=== PATIENT | male | born 1945 | race Caucasian/White ===

== ENCOUNTER 2021-10-30 13:06 | Outpatient (CLI) | payer SELFPAY ==
--- NOTE | 2021-10-30 13:25 | USCV_ITS ---
Julee Ren Age: 76 Gender: M : 1945 Exam Date: 10/30/2021 13:38 Ordering Phys: Germain Bradley MD Technologist: Bonny Presley [place] [facility] [place]: CAD BP: 116 / 80 HR: 53 Rhythm: Sinus Technical Quality: Suboptimal MEASUREMENTS (Male / Female) Normal Values 2D ECHO LV Diastolic Diameter PLAX 4.0 cm 4.2 - 5.9 / 3.9 - 5.3 cm LV Systolic Diameter PLAX 3.0 cm IVS Diastolic Thickness 1.0 cm 0.6 - 1.0 / 0.6 - 0.9 cm IVS Systolic Thickness 1.7 cm LVPW Diastolic Thickness 1.3 cm 0.6 - 1.0 / 0.6 - 0.9 cm LVPW Systolic Thickness 1.2 cm LVOT Diameter 2.0 cm LV Ejection Fraction 2D Teich 47.4 % LV Ejection Fraction MOD 2C 51.7 % LV Ejection Fraction 2C AL 52.2 % LA Diameter 3.0 cm LA Width 3.4 cm LA Height 5.3 cm RA Width 3.9 cm RA Height 3.6 cm Aorta at Sinotubular Diameter 1.6 cm M-MODE Aortic Annulus Diameter 3.2 cm LA Ao Ratio MM 0.9 MV E Point Septal Separation 1.1 cm DOPPLER AV Peak Velocity 112.0 cm/s LVOT Peak Velocity 116.0 cm/s AV Area Cont Eq vti 2.7 cm squared AV Area Cont Eq pk 3.3 cm squared MV Area PHT 3.9 cm squared Mitral E to A Ratio 1.2 MV E' Velocity 51.5 cm/s Mitral E to MV E' Ratio 13.1 Mitral E to LV E' Lateral Ratio 13.9 Mitral E to LV E' Septal Ratio 12.4 TR Peak Velocity 254.0 cm/s TR Peak Gradient 25.8 mmHg TV Peak E Velocity 52.0 cm/s PV Peak Velocity 119.0 cm/s RV Acceleration Time 0.2 s RV Ejection Time 0.3 s RV AcT/ET 0.6 FINDINGS Left Ventricle Normal left ventricular size. LV systolic function is normal with EF of 50-55%. No regional wall motion abnormalities. Normal diastolic dysfunction Right Ventricle The right ventricle is normal in size and function. Right Atrium The right atrium is normal in size. Left Atrium The left atrium is normal in size. Mitral Valve Mild mitral annular calcification without significant stenosis or prolapse. There is trace mitral regurgitation. Aortic Valve Structurally normal aortic valve without significant sclerosis or stenosis. There is no aortic regurgitation. Tricuspid Valve Structurally normal tricuspid valve without significant stenosis or regurgitation. Insufficient TR jet to calculate RVSP Pulmonic Valve Structurally normal pulmonic valve without significant stenosis. There is trace pulmonic regurgitation. Pericardium Normal pericardium without effusion. Aorta Normal ascending aorta dimension. CONCLUSIONS LV systolic function is normal with EF of 50-55%. Normal diastolic dysfunction Trace mitral regurgitation Trace pulmonic regurgitation No comparison studies are available Abdifatah Leslie MD (Electronically Signed) Final Date: 04 November 2021 08:54 S
--- NOTE | 2021-11-12 13:00 | P.MISC_ITS ---
Miscellaneous Note Note: Julee Ren : 1945 History of Present Illness Chief Complaint: Patient presents for an acute illness. Had lost 10lbs and felt better. anxiety and sleep was better. has gained it back. Last week had pain in right side of chest. stabbing pain. pain went into right arm. nitro and pain pill didn't help. but they were old. took several tums and subsided. happened the next day. can't walk or do much because causes sig shortness of breath and some pain. feels like pressure pain now similar to what he had with his heart before. Current Medications: metoprolol tartrate 50 mg tablet (metoprolol tartrate) Take 1 tablet by mouth once a day atorvastatin 10 mg tablet (atorvastatin) 1 tablet by mouth once a day allopurinol 300 mg tablet (allopurinol) Take 1 tablet by mouth once a day Zofran 4 mg tablet (ondansetron hcl) 1 tablet by mouth every four hours as needed colchicine 0.6 mg capsule (colchicine) 1 tablet by mouth three times a day as needed tamsulosin 0.4 mg capsule (tamsulosin) Take 1 capsule by mouth once a day Allergies: NONE (Critical) Preventive: CHOLESTEROL: COLONOSCOPY: BONE DENSITY: PSA: Flu: DTAP: PNEUMOVAX: PREVNAR 13: ZOSTAVAX: COVID VACCINE: Past, Family, and Social History Past History (reviewed - no changes required): PAST MEDICAL HISTORY: Coronary Artery Disease; PVD; gout; diverticulitis; benign prostatic hypertrophy PAST SURGICAL HISTORY: appendix; femoral artery graft after an accident; 3 stents 2005; CABG x 3 2008. 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 no alcohol Physical Exam: Previous Weight: 224 (06/08/2021 2:51:01 PM) Vital Signs: Patient Profile: 76 Years Old Male CC: Chief Complaint: Patient presents for an acute illness. Height: 70 inches Weight: 220 pounds BMI: 31.56 O2 Sat: 95 % Temp: 97.6 degrees F temporal Pulse rate: 69 / minute Resp: 20 per minute BP Sittin / 82 Constitutional: Alert, no acute distress, well hydrated, well developed, well nourished. Skin: Normal turgor, normal color, no rashes, no lesions, no unusual bruising. Cardiovascular: RRR, no murmurs, no gallops, peripheral pulses intact, no edema. Respiratory: No respiratory distress, no accessory muscle use, clear to auscultation. Abdomen: nondistended, nontender, normal BS, no hepatosplenomegaly, no hernias. Neurol: station & gait normal. Psych: Oriented to all spheres, affect normal. EKG - NSR, no ST changes. No Q waves Problem Assessment Assessment New Problems: Chest pain (ICD-786.50) (AYH59-V55.9) Impressions: - chest pain - ? etiology. EKG normal. check labs and D-dimer. consider stress test. Discussed ER if worsens. Restart ASA and give nitro SL Return to clinic early next week. Plan New Prescriptions/Refills: nitroglycerin 0.4 mg tablet, sublingual (nitroglycerin) 1 tab SL q 5 mins x 3 doses prn chest pain #20 tablets x 11, 10/27/2021, Germain Bradley MD, SIGNED Updated Medication List: nitroglycerin 0.4 mg tablet, sublingual (nitroglycerin) 1 tab SL q 5 mins x 3 doses prn chest pain metoprolol tartrate 50 mg tablet (metoprolol tartrate) Take 1 tablet by mouth once a day atorvastatin 10 mg tablet (atorvastatin) 1 tablet by mouth once a day aspirin 325 mg tablet (aspirin) 1 tablet by mouth once a day allopurinol 300 mg tablet (allopurinol) Take 1 tablet by mouth once a day Zofran 4 mg tablet (ondansetron hcl) 1 tablet by mouth every four hours as needed colchicine 0.6 mg capsule (colchicine) 1 tablet by mouth three times a day as needed tamsulosin 0.4 mg capsule (tamsulosin) Take 1 capsule by mouth once a day New Orders: Ofc Vst, Est Level IV [CPT-50297] CBC w/auto diff WBC [CPT-23748] Basic Mebabolic Panel [CPT-49826] Miscellaneous [0] Electrocardiogram (routine ECG), complete [CPT-40474] Medications: Added new medication of nitroglycerin 0.4 mg tablet, sublingual (nitroglycerin) 1 tab SL q 5 mins x 3 doses prn chest pain - Signed Removed medication of losartan 100 mg tablet (losartan) 1 tablet by mouth once a day ; Route: BY MOUTH; Stop Date: 10/27/2021 - Signed Rx of nitroglycerin 0.4 mg tablet, sublingual (nitroglycerin) 1 tab SL q 5 mins x 3 doses prn chest pain; #20 tablets x 11; Signed; Entered by: Germain Bradley MD; Authorized by: Germain Bradley MD; Method used: Electronically to [place] [id number], , Prescriptions: nitroglycerin 0.4 mg tablet, sublingual (nitroglycerin) 1 tab SL q 5 mins x 3 doses prn chest pain #20 tablets x 11 Entered and Authorized by: Germain Bradley MD Method used: Electronically to [place] [id number], RxID: [id number] Julee Ren : 1945 History of Present Illness His chest pain was 1 week ago. Troponin came back pos from 2 days ago. His EKG was normal 2 days ago in clinic. Was an atypical presentation. He is still very weak but no chest pain. No worse. Current Medications: isosorbide mononitrate 30 mg tablet extended release 24 hr (isosorbide mononitrate) 1 tablet once a day nitroglycerin 0.4 mg tablet, sublingual (nitroglycerin) 1 tab SL q 5 mins x 3 doses prn chest pain metoprolol tartrate 50 mg tablet (metoprolol tartrate) Take 1 tablet by mouth once a day atorvastatin 10 mg tablet (atorvastatin) 1 tablet by mouth once a day aspirin 325 mg tablet (aspirin) 1 tablet by mouth once a day allopurinol 300 mg tablet (allopurinol) Take 1 tablet by mouth once a day Zofran 4 mg tablet (ondansetron hcl) 1 tablet by mouth every four hours as needed colchicine 0.6 mg capsule (colchicine) 1 tablet by mouth three times a day as needed tamsulosin 0.4 mg capsule (tamsulosin) Take 1 capsule by mouth once a day Allergies: NONE (Critical) Preventive: CHOLESTEROL: COLONOSCOPY: BONE DENSITY: PSA: Flu: DTAP: PNEUMOVAX: PREVNAR 13: ZOSTAVAX: COVID VACCINE: Past, Family, and Social History Past History (reviewed - no changes required): PAST MEDICAL HISTORY: Coronary Artery Disease; PVD; gout; diverticulitis; benign prostatic hypertrophy PAST SURGICAL HISTORY: appendix; femoral artery graft after an accident; 3 stents 2005; CABG x 3 2008. 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 no alcohol Physical Exam: Previous Weight: 220 (10/27/2021 11:53:53 AM) Vital Signs: Patient Profile: 76 Years Old Male Height: 70 inches Weight: 221 pounds BMI: 31.71 O2 Sat: 95 % Temp: 97.4 degrees F temporal Pulse rate: 72 / minute Resp: 20 per minute BP Sittin / 75 Constitutional: Alert, no acute distress, well hydrated, well developed, well nourished. Skin: Normal turgor, normal color, no rashes, no lesions, no unusual bruising. Cardiovascular: RRR, no murmurs, no gallops, peripheral pulses intact, no edema. Respiratory: No respiratory distress, no accessory muscle use, clear to auscultation. Abdomen: nondistended, nontender, normal BS, no hepatosplenomegaly, no hernias. Neurol: station & gait normal. Psych: Oriented to all spheres, affect normal. Problem Assessment Assessment New Problems: Myocardial infarction (ND) (ICD-410.90) (RUP92-H67.3) Impressions: - status post ND/ Coronary Artery Disease - add lisinopril/ Plavix/Isosorbide. Precautions to go to ER. Urgent echo and then decide on stress test or angiogram. refer to cardiology - likely Diabetes Mellitus type 2 - check labs next week. discussed diet - Return to clinic for recheck in 1 week Plan New Prescriptions/Refills: Plavix 75 mg tablet (clopidogrel) Take 1 tablet by mouth once a day #30 tablet x 10/29/2021, Germain Bradley MD, SIGNED lisinopril 10 mg tablet (lisinopril) Take 1 tablet by mouth once a day #30 tablet x , 10/29/2021, Germain Bradley MD, SIGNED Updated Medication List: Plavix 75 mg tablet (clopidogrel) Take 1 tablet by mouth once a day lisinopril 10 mg tablet (lisinopril) Take 1 tablet by mouth once a day isosorbide mononitrate 30 mg tablet extended release 24 hr (isosorbide mononitrate) 1 tablet once a day nitroglycerin 0.4 mg tablet, sublingual (nitroglycerin) 1 tab SL q 5 mins x 3 doses prn chest pain metoprolol tartrate 50 mg tablet (metoprolol tartrate) Take 1 tablet by mouth once a day atorvastatin 10 mg tablet (atorvastatin) 1 tablet by mouth once a day aspirin 325 mg tablet (aspirin) 1 tablet by mouth once a day allopurinol 300 mg tablet (allopurinol) Take 1 tablet by mouth once a day Zofran 4 mg tablet (ondansetron hcl) 1 tablet by mouth every four hours as needed colchicine 0.6 mg capsule (colchicine) 1 tablet by mouth three times a day as needed tamsulosin 0.4 mg capsule (tamsulosin) Take 1 capsule by mouth once a day New Orders: Ofc Vst, Est Level IV [CPT-25268] ECHO, transthoracic, complete [CPT-94873] Medications: Added new medication of lisinopril 10 mg tablet (lisinopril) Take 1 tablet by mouth once a day ; Route: BY MOUTH - Signed Added new medication of Plavix 75 mg tablet (clopidogrel) Take 1 tablet by mouth once a day ; Route: BY MOUTH - Signed Rx of lisinopril 10 mg tablet (lisinopril) Take 1 tablet by mouth once a day ; #30 tablet x 11; Signed; Entered by: Germain Bradley MD; Authorized by: Germain Bradley MD; Method used: [place] [address], , Rx of Plavix 75 mg tablet (clopidogrel) Take 1 tablet by mouth once a day ; #30 tablet x 11; Signed; Entered by: Germain Bradley MD; Authorized by: Germain Bradley MD; Method used: [place] [address], Fax: , ; Note to Pharmacy: do generic:USE Rx DISCOUNT CARD: $191.27, BIN:[id number], PCN:CHIPPO, Group:[id number], ID:[id number] Prescriptions: Plavix 75 mg tablet (clopidogrel) Take 1 tablet by mouth once a day #30 tablet x 11 Entered and Authorized by: Germain Bradley MD Method used: [place] [address], Note to Pharmacy: do generic:USE Rx DISCOUNT CARD: $191.27, BIN:[id number], PCN:CHIPPO, Group:[id number], ID:[id number] RxID: [id number] lisinopril 10 mg tablet (lisinopril) Take 1 tablet by mouth once a day #30 ta blet x 11 Entered and Authorized by: Germain Bradley MD Method used: [place] [address], RxID: [id number]
--- NOTE | 2021-11-12 13:04 | PM.MISC ---
Miscellaneous Note Note: _ _
== END 2021-10-30 13:07 | disposition home or self-care (01) ==
PROVIDERS: PCP Family Medicine; Visit Provider Family Medicine
DX: I25.10 Atherosclerotic heart disease of native coronary artery without angina pectoris (principal); I34.0 Nonrheumatic mitral (valve) insufficiency
CPT/HCPCS: 93306

== ENCOUNTER 2021-12-21 04:53 | Inpatient (IN) | payer MEDICARE, SELFPAY ==
[2021-12-21] VITALS (44 sets, daily range): BP systolic 84–140; BP diastolic 47–81; PULSE 63–119; RESP 10–25; TEMP 36.3–37.1; O2SAT 91–97; BMI 28.5
--- NOTE | 2021-12-21 05:02 | ECG_ITS ---
[facility] Test Date: 2021-12-21 Pat Name: Julee Ren Department: Room: 104 Gender: Male [employer]: : 1945 Requested By: Henrry Granados Order Number: [id number] Ilsa MD: Perlita Snowden M.D. Measurements Intervals [place] Rate: 72 P: 64 MS: 146 QRS: 61 QRSD: 93 T: 75 QT: 405 QTc: 445 Interpretive Statements SINUS RHYTHM Compared to ECG 12/21/2021 07:03:49 No significant changes Electronically Signed On 12-21-2021 17:36:46 CDT by Perlita Snowden M.D. [email or web address]
--- NOTE | 2021-12-21 05:02 | XRR_ITS ---
PROCEDURE INFORMATION: Exam: XR Chest Exam date and time: 12/21/2021 5:15 AM Age: 76 years old Clinical indication: Pain; Chest pressure; Prior surgery; Surgery date: 6+ months; Surgery type: Cabg; Additional info: Cp TECHNIQUE: Imaging protocol: XR of the chest. Views: 1 view. COMPARISON: No relevant prior studies available. FINDINGS: Lungs: Unremarkable. No consolidation. Pleural spaces: Unremarkable. No pleural effusion. No pneumothorax. Heart/Mediastinum: Unremarkable. No cardiomegaly. Bones/joints: Median sternotomy changes seen. XR/XR chest 1V portable [id number] IMPRESSION: No evidence of active cardiopulmonary disease.
[2021-12-21] MEDS: sodium chloride 0.9% 1,000 ML 999 ML IV (05:11)
[2021-12-21 05:12] LABS: Basophils # 0.1 10^3/uL (0.0-0.1); Basophils % 0.5 %; Eosinophils # 0.3 10^3/uL (0.0-0.8); Eosinophils % 2.1 %; Hematocrit 40.7 % (42.0-52.0); Hemoglobin 13.6 g/dL (11.7-16.6); Lymphocytes # 5.3 10^3/uL (0.8-4.8); Lymphocytes % 38.6 %; Mean Corpuscular HGB Conc 33.4 g/dL (30.0-36.0); Mean Corpuscular Hemoglobin 31.1 pg (28.0-34.0); Mean Corpuscular Volume 93.1 fl (80-94); Mean Platelet Volume 11.5 fL (7.4-10.4); Monocytes % 7.2 %; Neutrophils # 7.01 10^3/uL (1.8-7.7); Neutrophils % 50.9 %; Nucleated Red Blood Cells % 0 %; Platelet Count 260 10^3/cmm (130-400); Red Blood Count 4.37 10^6/uL (4.1-5.3); Red Cell Distribution Width 13.5 % (12.1-15.1); White Blood Count 13.8 10^3/uL (4.0-10.0)
--- NOTE | 2021-12-21 05:19 | ED_ITS ---
Documented by User: Henrry Darling DO 01/01/22 18:21 HPI - Chest Pain General: Chief Complaint: Chest Pain Stated Complaint: chest pain Time Seen by Provider: 12/21/21 04:54 History of Present Illness: 76-year-old gentleman who awoke around 4 AM with chest discomfort. He has a history of coronary artery disease. He also states he has been having some black stools for the past week or so. He was short of breath. EMS was called. He was found to be in sinus tachycardia rhythm with a good blood pressure. Pain seems to have resolved on arrival. But shortly after arrival, the patient began to feel nauseated, and faint. He likely had a syncopal episode lasting only a couple of seconds witnessed in the room. He became diaphoretic, and mildly hypotensive with a systolic blood pressure of 90. IV fluids were started, the patient again was found to be in sinus tachycardia. Currently he is awake and talking, chest pain is resolved. MD complaint: chest pain Onset (ago): minute(s) Timing of current episode: constant and now resolved Prior episodes: Yes Onset: awoke with symptoms Pain location: substernal Pain radiation: none Quality: tightness and heaviness Relieving factors: nothing Exacerbating factors: nothing Associated symptoms: Reports dyspnea, nausea and palpitations; Deny abdominal pain, fever(s) or vomiting Review of Systems Const: Reports: chills; Denies: fever(s) ENMT: Denies: throat pain Card: Reports: chest pain and palpitations Resp: Reports: dyspnea; Denies: productive cough or non-productive cough GI: Reports: nausea and melena; Denies: abdominal pain, vomiting or hematochezia Musc: Denies: neck pain or back pain Psych: Reports: anxiety PFSH ED PFSH: Medical History Benign prostatic hyperplasia CAD (coronary artery disease) Chest pain Gout History of diverticulitis With history of colonic rupture requiring colostomy Hypertension PVD (peripheral vascular disease) SOB (shortness of breath) Surgical History History of appendectomy History of colostomy reversal History of coronary artery stent placement Hx of CABG Family History Other CAD (coronary artery disease) Diabetes Social History Smoking and tobacco status: former smoker Alcohol intake: never Physical Exam Const: GENERAL APPEARANCE: cooperative, ill appearing and diaphoretic HENMT: COMMON NORMALS: normocephalic, atraumatic and Normal external nose present HEAD & SCALP: normocephalic and atraumatic FACE & SINUS: normal facial exam and face symmetric NOSE: Normal external nose present Eye: COMMON NORMALS: Equal, round and reactive pupils present and EOMs intact bilaterally PUPIL: Yes Equal, round and reactive pupils present Neck/C-Spine: GENERAL: Yes trachea midline Chest: CHEST: Yes Symmetrical chest wall rise Resp: EFFORT & INSPECTION: Yes tachypneic and Yes uses accessory muscles AUSCULTATION: rhonchi and diminished lung sounds Cardio: COMMON NORMALS: regular rhythm RATE: tachycardic RHYTHM: regular rhythm Extremity: COMMON NORMALS: no pedal edema Neuro: QUETA COMA SCALE: document GCS findings [place] coma scale eye opening: Spontaneous [place] coma scale verbal response: Orientated [place] coma scale motor response: Obey commands [place] coma scale total score: 15 Skin: GENERAL SKIN EXAM: pallor Course Vital Signs: Vital signs: Vital Signs Temperature 97.4 F L 12/23/21 13:46 Pulse Rate 83 12/23/21 16:00 Respiratory Rate 18 12/23/21 16:00 Blood Pressure 126/71 12/23/21 16:00 Pulse Oximetry 91 12/23/21 16:00 MDM - Chest Pain Medical Decision Making Patient presented diaphoretic, had at least a near syncopal episode, and had been having chest discomfort. Chest discomfort is resolved. He is minimally short of breath currently. His color is no longer ashen. Blood pressure currently after 1 L, is 120/73, heart rate down to 80, sinus. Saturations are 95% on room air. White blood cell count is 13.8. BUN is 40. His hemoglobin is 13.6. Chest x-ray is negative. EKG initially showed sinus tachycardia with no acute ST changes. First troponin is 10. BNP is slightly elevated. 2-hour troponin and EKG are pending along with D-dimer. He will be checked out to Dr. Ortiz at shift change Lab Data : 12/23/21 03:35 12/23/21 03:35 Radiology Impressions Chest X-Ray 12/21/21 05:02 IMPRESSION: No evidence of active cardiopulmonary disease. Gallbladder Ultrasound 12/21/21 11:59 IMPRESSION: 1. Negative gallbladder. 2. Technically very limited evaluation of the RIGHT upper quadrant. 3. Moderate hepatomegaly with severe hepatic steatosis. Laboratory Results WBC 13.8 10^3/uL (4.0-10.0) H 12/21/21 04:45 RBC 4.37 10^6/uL (4.1-5.3) 12/21/21 04:45 Hgb 13.6 g/dL (11.7-16.6) 12/21/21 04:45 Hct 40.7 % (42.0-52.0) L 12/21/21 04:45 MCV 93.1 fl (80-94) 12/21/21 04:45 MCH 31.1 pg (28.0-34.0) 12/21/21 04:45 MCHC 33.4 g/dL (30.0-36.0) 12/21/21 04:45 RDW 13.5 % (12.1-15.1) 12/21/21 04:45 Plt Count 260 10^3/cmm (130-400) 12/21/21 04:45 MPV 11.5 fL (7.4-10.4) H 12/21/21 04:45 Neut % (Auto) 50.9 % 12/21/21 04:45 Lymph % (Auto) 38.6 % 12/21/21 04:45 [place] % (Auto) 7.2 % 12/21/21 04:45 Eos % (Auto) 2.1 % 12/21/21 04:45 Baso % (Auto) 0.5 % 12/21/21 04:45 Neut # (Auto) 7.01 10^3/uL (1.8-7.7) 12/21/21 04:45 Lymph # (Auto) 5.3 10^3/uL (0.8-4.8) H 12/21/21 04:45 [place] # (Auto) 1.0 10^3/uL (0.2-0.9) H 12/21/21 04:45 Eos # (Auto) 0.3 10^3/uL (0.0-0.8) 12/21/21 04:45 Baso # (Auto) 0.1 10^3/uL (0.0-0.1) 12/21/21 04:45 Nucleated RBC % (auto) 0 % 12/21/21 04:45 Nucleated RBCs # 0.0 /100WBC 12/21/21 04:45 PT 14.70 SECONDS (12.1-14.9) 12/21/21 04:45 INR 1.12 (0.8-1.2) 12/21/21 04:45 APTT 27.5 SECONDS (23.9-36.7) 12/21/21 04:45 D-Dimer 0.65 ug/mIFEU (0-0.59) H 12/21/21 04:45 Sodium 137 mmol/L (136-145) 12/21/21 04:45 Potassium 4.4 mmol/L (3.5-5.1) 12/21/21 04:45 Chloride 101 mmol/L (98-107) 12/21/21 04:45 Carbon Dioxide 22 mmol/L (22-29) 12/21/21 04:45 Anion Gap 18.4 (5-19) 12/21/21 04:45 BUN 40 mg/dL (8-23) H 12/21/21 04:45 Creatinine 1.2 mg/dL (0.7-1.2) 12/21/21 04:45 GFR Calculation Not Reportable 12/21/21 04:45 Glucose 186 mg/dL (65-115) H 12/21/21 04:45 Estimat Average Glucose 186 12/21/21 04:45 Hemoglobin A1c 8.1 % (4.0-6.0) H 12/21/21 04:45 Calculated Osmolality 299 mOsm/kg (285-295) H 12/21/21 04:45 Calcium 8.5 mg/dL (8.5-10.5) 12/21/21 04:45 Total Bilirubin 0.5 mg/dL (0.15-1.2) 12/21/21 04:45 AST 18 U/L (0-40) 12/21/21 04:45 ALT 21 U/L (0-41) 12/21/21 04:45 Alkaline Phosphatase 84 IU/L (40-130) 12/21/21 04:45 Troponin T Baseline 10 ng/L (0-15) 12/21/21 04:45 Troponin T 120 Minute 8.86 ng/L (0-15) 12/21/21 07:43 Delta Troponin T -1.14 ABS# (0-10) L 12/21/21 07:43 NT-Pro-B Natriuret Pep 322 pg/mL (0-125) H 12/21/21 04:45 Total Protein 6.8 g/dL (6.6-8.7) 12/21/21 04:45 Albumin 3.9 g/dL (3.5-5.2) 12/21/21 04:45 Globulin 2.9 g/dL (1.3-4.6) 12/21/21 04:45 TSH 1.53 uIU/mL (0.27-4.20) 12/21/21 07:43 Discharge Plan Discharge Patient Disposition: Admitted As Inpatient Admit Provider: Shiv Garcia Condition: Stable Discharge Diet: Cardiac Sign Out Sign Out Data: Patient Sign Out occurred on 12/21/21 at 07:11. Patient's care was discussed, and care was transferred from to Juanpablo Ortiz DO. Coding Level of Care Code ED Weight Loss Physician for Chg Fwd Exam Comprehensive Documented by User: Juanpablo Ortiz DO 12/21/21 09:03 HPI - Chest Pain General: Chief Complaint: Chest Pain Stated Complaint: chest pain Time Seen by Provider: 12/21/21 04:54 PFS ED PFSH: Medical History Benign prostatic hyperplasia CAD (coronary artery disease) Chest pain Gout History of diverticulitis With history of colonic rupture requiring colostomy Hypertension PVD (peripheral vascular disease) SOB (shortness of breath) Surgical History History of appendectomy History of colostomy reversal History of coronary artery stent placement Hx of CABG Family History Other CAD (coronary artery disease) Diabetes Social History Smoking and tobacco status: former smoker Alcohol intake: never Physical Exam Neuro: QUETA COMA SCALE: document GCS findings [place] coma scale total score: 15 Course Vital Signs: Vital signs: Vital Signs Temperature 97.4 F L 12/23/21 13:46 Pulse Rate 83 12/23/21 16:00 Respiratory Rate 18 12/23/21 16:00 Blood Pressure 126/71 12/23/21 16:00 Pulse Oximetry 91 12/23/21 16:00 MDM - Chest Pain Medical Decision Making Patient presented diaphoretic, had at least a near syncopal episode, and had been having chest discomfort. Chest discomfort is resolved. He is minimally short of breath currently. His color is no longer ashen. Blood pressure currently after 1 L, is 120/73, heart rate down to 80, sinus. Saturations are 95% on room air. White blood cell count is 13.8. BUN is 40. His hemoglobin is 13.6. Chest x-ray is negative. EKG initially showed sinus tachycardia with no acute ST changes. First troponin is 10. BNP is slightly elevated. 2-hour t roponin and EKG are pending along with D-dimer. He will be checked out to Dr. Ortiz at shift change Patient is feeling better his symptoms have resolved. Blood pressure is improved somewhat but is still low. He is having significant what sounds like essentially anginal equivalent with significant shortness of breath with almost any activity even walking within the space of her room. He had previously seen Dr. Ila Thorpe and encouraged him to have angiogram. Will admit discussed with hospitalist consult cardiology. Medical Records I reviewed the patient's medical records. Lab Data I reviewed the patient's lab results. : 12/23/21 03:35 12/23/21 03:35 Radiology Impressions Chest X-Ray 12/21/21 05:02 IMPRESSION: No evidence of active cardiopulmonary disease. Gallbladder Ultrasound 12/21/21 11:59 IMPRESSION: 1. Negative gallbladder. 2. Technically very limited evaluation of the RIGHT upper quadrant. 3. Moderate hepatomegaly with severe hepatic steatosis. Laboratory Results WBC 13.8 10^3/uL (4.0-10.0) H 12/21/21 04:45 RBC 4.37 10^6/uL (4.1-5.3) 12/21/21 04:45 Hgb 13.6 g/dL (11.7-16.6) 12/21/21 04:45 Hct 40.7 % (42.0-52.0) L 12/21/21 04:45 MCV 93.1 fl (80-94) 12/21/21 04:45 MCH 31.1 pg (28.0-34.0) 12/21/21 04:45 MCHC 33.4 g/dL (30.0-36.0) 12/21/21 04:45 RDW 13.5 % (12.1-15.1) 12/21/21 04:45 Plt Count 260 10^3/cmm (130-400) 12/21/21 04:45 MPV 11.5 fL (7.4-10.4) H 12/21/21 04:45 Neut % (Auto) 50.9 % 12/21/21 04:45 Lymph % (Auto) 38.6 % 12/21/21 04:45 [place] % (Auto) 7.2 % 12/21/21 04:45 Eos % (Auto) 2.1 % 12/21/21 04:45 Baso % (Auto) 0.5 % 12/21/21 04:45 Neut # (Auto) 7.01 10^3/uL (1.8-7.7) 12/21/21 04:45 Lymph # (Auto) 5.3 10^3/uL (0.8-4.8) H 12/21/21 04:45 [place] # (Auto) 1.0 10^3/uL (0.2-0.9) H 12/21/21 04:45 Eos # (Auto) 0.3 10^3/uL (0.0-0.8) 12/21/21 04:45 Baso # (Auto) 0.1 10^3/uL (0.0-0.1) 12/21/21 04:45 Nucleated RBC % (auto) 0 % 12/21/21 04:45 Nucleated RBCs # 0.0 /100WBC 12/21/21 04:45 PT 14.70 SECONDS (12.1-14.9) 12/21/21 04:45 INR 1.12 (0.8-1.2) 12/21/21 04:45 APTT 27.5 SECONDS (23.9-36.7) 12/21/21 04:45 D-Dimer 0.65 ug/mIFEU (0-0.59) H 12/21/21 04:45 Sodium 137 mmol/L (136-145) 12/21/21 04:45 Potassium 4.4 mmol/L (3.5-5.1) 12/21/21 04:45 Chloride 101 mmol/L (98-107) 12/21/21 04:45 Carbon Dioxide 22 mmol/L (22-29) 12/21/21 04:45 Anion Gap 18.4 (5-19) 12/21/21 04:45 BUN 40 mg/dL (8-23) H 12/21/21 04:45 Creatinine 1.2 mg/dL (0.7-1.2) 12/21/21 04:45 GFR Calculation Not Reportable 12/21/21 04:45 Glucose 186 mg/dL (65-115) H 12/21/21 04:45 Estimat Average Glucose 186 12/21/21 04:45 Hemoglobin A1c 8.1 % (4.0-6.0) H 12/21/21 04:45 Calculated Osmolality 299 mOsm/kg (285-295) H 12/21/21 04:45 Calcium 8.5 mg/dL (8.5-10.5) 12/21/21 04:45 Total Bilirubin 0.5 mg/dL (0.15-1.2) 12/21/21 04:45 AST 18 U/L (0-40) 12/21/21 04:45 ALT 21 U/L (0-41) 12/21/21 04:45 Alkaline Phosphatase 84 IU/L (40-130) 12/21/21 04:45 Troponin T Baseline 10 ng/L (0-15) 12/21/21 04:45 Troponin T 120 Minute 8.86 ng/L (0-15) 12/21/21 07:43 Delta Troponin T -1.14 ABS# (0-10) L 12/21/21 07:43 NT-Pro-B Natriuret Pep 322 pg/mL (0-125) H 12/21/21 04:45 Total Protein 6.8 g/dL (6.6-8.7) 12/21/21 04:45 Albumin 3.9 g/dL (3.5-5.2) 12/21/21 04:45 Globulin 2.9 g/dL (1.3-4.6) 12/21/21 04:45 TSH 1.53 uIU/mL (0.27-4.20) 12/21/21 07:43 Discharge Plan Discharge Patient Disposition: Admitted As Inpatient Admit Provider: Shiv Garcia Condition: Stable Discharge Diet: Cardiac Sign Out Sign Out Data: Patient Sign Out occurred on 12/21/21 at 07:11. Patient's care was discussed, and care was transferred from to Juanpablo Ortiz DO. Coding Level of Care Code ED Weight Loss Physician for Shivg Fwd Exam Comprehensive
[2021-12-21] MEDS: LORazepam 2 mg/mL INJ 1 mL 0.5 MG IVP (05:23)
[2021-12-21 05:25] LABS: INR 1.12 (0.8-1.2); Partial Thromboplastin Time 27.5 SECONDS (23.9-36.7)
[2021-12-21 05:31] LABS: Troponin(5th) Baseline 10 ng/L (0-15)
[2021-12-21 05:39] LABS: Alanine Aminotransferase 21 U/L (0-41); Albumin Level 3.9 g/dL (3.5-5.2); Alkaline Phosphatase 84 IU/L (40-130); Anion Gap 18.4 (5-19); Aspartate Amino Transferase 18 U/L (0-40); Blood Urea Nitrogen 40 mg/dL (8-23); Calcium 8.5 mg/dL (8.5-10.5); Carbon Dioxide 22 mmol/L (22-29); Chloride 101 mmol/L (98-107); Creatinine Clr Calc Pharmacy 64.6721; Globulin 2.9 g/dL (1.3-4.6); Glucose 186 mg/dL (65-115); NT Pro B Type Natriuretic Pept 322 pg/mL (0-125); Osmolality Calculated 299 mOsm/kg (285-295); Potassium 4.4 mmol/L (3.5-5.1); Sodium 137 mmol/L (136-145); Total Bilirubin 0.5 mg/dL (0.15-1.2); Total Protein 6.8 g/dL (6.6-8.7)
[2021-12-21] MEDS: sodium chloride 0.9% 500 ML 999 ML IV (06:27)
--- NOTE | 2021-12-21 07:02 | ECG_ITS ---
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 Measurements Intervals [place] Rate: 75 P: 68 NM: 148 QRS: 70 QRSD: 98 T: 70 QT: 407 QTc: 455 Interpretive Statements SINUS RHYTHM Compared to ECG 12/21/2021 05:03:48 Sinus tachycardia no longer present ST (T wave) deviation no longer present Electronically Signed On 12-21-2021 17:41:42 CDT by Perlita Snowden M.D. [id number]
[2021-12-21 07:07] LABS: D Dimer 0.65 ug/mIFEU (0-0.59)
[2021-12-21 08:09] LABS: Troponin 5 2HR 8.86 ng/L (0-15)
[2021-12-21 08:41] LABS: Troponin 5 2HR Delta -1.14 ABS# (0-10)
--- NOTE | 2021-12-21 08:54 | P.HP_ITS ---
Providers/Chief Complaint Admitting Physician: Shiv Garcia MD, hospitalist Primary Care Provider: Germain Bradley MD Chief Complaint: chest pain History of Present Illness Julee Ren is a 76 year old male who presents to the emergency department with complaints of chest discomfort. He reports around 4 AM this morning he awoke with chest discomfort to the right of his sternum, associated with nausea and diaphoresis. Some radiation to the right shoulder. He reported this lasted minutes, and eventually went away without any intervention. He has had 3-4 of these episodes in the 6 weeks with similar symptoms. He visited with cardiology regarding one of the episodes and it was recommended he got an angiogram. Some of the episodes have been with exertion. On arrival to the emergency department here, he was noted to be hypotensive. It appears to receive some Ativan, and fluids eventually and is ER course. He did receive a nitroglycerin in route by EMS. He denies any fevers lately. He has had some black or stools in the last 2 days, but they are not black or tarry or have any odor. He reports he has had a little stomach upset with initiation of aspirin and Plavix by his primary care provider recently. He denies any nosebleeds, bright red blood in stool. He received aspirin by EMS. Review of Systems General: Reports: 10 or more systems reviewed and unremarkable except in HPI and below Const: Denies: fever(s) or chills Eyes: Denies: change in vision ENMT: Denies: throat pain Card: Reports: chest pain and lightheadedness Resp: Denies: dyspnea GI: Reports: nausea; Denies: hematochezia : Denies: flank pain Musc: Denies: neck pain Skin/Breast: Denies: rash Neuro: Denies: headache(s) Psych: Denies: anxiety or depression Endo: Denies: polyuria Homar/Lymph: Denies: easy bruising All/Imm: Denies: urticaria Medications/Allergies Home Medications Medication Instructions Recorded Confirmed Last Taken Type allopurinol 300 mg tablet 300 mg PO QAM tab 11/13/21 12/21/21 12/19/21 History aspirin 325 mg tablet 325 mg PO QAM 11/13/21 12/21/21 12/19/21 History clopidogrel 75 mg tablet 75 mg PO QAM 11/13/21 12/21/21 12/19/21 History colchicine 0.6 mg tablet 0.6 mg PO DAILY PRN tab 11/13/21 12/21/21 Unknown History guaifenesin 600 mg tablet, 600 mg PO DAILY PRN tab 11/13/21 12/21/21 Unknown History extended release 12 hr (Mucinex) lisinopril 10 mg tablet 10 mg PO QAM 11/13/21 12/21/21 12/19/21 History metoprolol tartrate 50 mg tablet 50 mg PO QAM 11/13/21 12/21/21 12/19/21 History ondansetron HCl 4 mg tablet 4 mg PO Q4H PRN tab 11/13/21 12/21/21 Unknown History tamsulosin 0.4 mg capsule 0.4 mg PO QAM 11/13/21 12/21/21 Unknown History docusate sodium 100 mg capsule 100 mg PO QAM 12/21/21 12/21/21 Unknown History (Stool Softener) isosorbide mononitrate 30 mg 30 mg PO QAM 12/21/21 12/21/21 12/19/21 History tablet,extended release 24 hr nitroglycerin 0.4 mg sublingual 0.4 mg SUBLINGUAL Q5M PRN 12/21/21 12/21/21 Unknown History tablet (Nitrostat) Allergies Allergy/AdvReac Type Severity Reaction Status Date / Time No Known Drug Allergies Allergy Unknown unknown Verified 12/21/21 08:33 PFSH Acute PFSH: Medical History (Updated 12/21/21 @ 09:11 by Shiv Garcia MD) Benign prostatic hyperplasia CAD (coronary artery disease) Chest pain Gout History of diverticulitis With history of colonic rupture requiring colostomy Hypertension PVD (peripheral vascular disease) SOB (shortness of breath) Surgical History (Updated 12/21/21 @ 09:01 by Shiv Garcia MD) History of appendectomy History of colostomy reversal History of coronary artery stent placement Hx of CABG Family History (Updated 12/21/21 @ 09:00 by Shiv Garcia MD) Other CAD (coronary artery disease) Diabetes Social History (Updated 12/21/21 @ 09:00 by Shiv Garcia MD) Smoking and tobacco status: former smoker Alcohol intake: never Other PFSH information: Supplemental PFSH Information: History of right femoral artery repair repair after trauma Vitals/I&O/Wt Last Vital Signs Temp 97.7 F 12/21/21 05:10 Pulse 73 12/21/21 07:55 Resp 18 12/21/21 07:55 BP 101/63 12/21/21 07:55 Pulse Ox 94 12/21/21 07:55 12/20/21 12/21/21 12/21/21 22:59 06:59 14:59 Intake Total 1000 / 1000 Balance 1000 / 1000 Weight last 48 hrs Weight 95.254 kg Physical Exam Narrative: General exam is a white male, denies any discomfort currently, in no distress HEENT: Atraumatic normocephalic. Pupils equally round. Oropharynx clear. Neck is supple no lymphadenopathy or thyromegaly Cardiovascular regular rate and rhythm without murmur, no S3 or S4 Lungs a few faint expiratory wheezes Abdomen is soft nontender positive bowel sounds. No obvious organomegaly exam was deferred Extremities no cyanosis clubbing or edema, cap refill brisk Skin no rash Neuro no obvious focal deficits. Data : 12/21/21 04:45 12/21/21 04:45 Other Labs: Initial EKG demonstrated sinus tachycardia, normal axis, ST depression V2 through 6 Chest x-ray no infiltrate, postoperative changes noted Echocardiogram October 2021 demonstrates normal EF, trace mitral regurgitation Dimer is 0.65 LFTs normal Troponin 10 at baseline, repeat 8.86 A&P Assessment and plan (1) Chest pain: This is consistent with unstable angina. He has had multiple episodes. He has visited with cardiology recently, and an angiogram was recommended. At this point in time placed on full dose Lovenox, aspirin, continue Plavix High-dose statin Check lipid panel in the morning Note that he has had a recent echocardiogram Check TSH Serial troponins Secondary to hypotension on arrival, which could possibly have been due to nitroglycerin, hold off on any antihypertensives including beta-donald and nitrates until further evaluation. Status: Acute (2) CAD (coronary artery disease): See notations above Status: Acute (3) Hypertension: Hypotensive on arrival to the emergency department. May have been due to nitroglycerin. Hold off on antihypertensives currently. Status: Acute Plan History of black stool. Not black and tarry. Hemoglobin normal. Placed on Protonix twice daily. Fecal Hemoccult. Hyperglycemia. Check hemoglobin A1c Full code Lovenox will suffice for DVT prophylaxis Attestations Medical Necessity Statement*: Will need greater than 2 midnight stay for evaluation and treatment of unstable angina Coding Level of Care Code Acute Regional Truck Driver for Chg Fwd Diagnoses Chest pain R07.9 CAD (coronary artery disease) I25.10 Hypertension I10
--- NOTE | 2021-12-21 09:27 | PC.NURSE ---
temp: 98.5 oral hr: 79 o2: 96 room air rr: 19 bp: 127/64 semi fowlers automatic cuff
[2021-12-21 09:56] LABS: Thyroid Stimulating Hormone 1.53 uIU/mL (0.27-4.20)
--- NOTE | 2021-12-21 10:04 | PM.CONSULT ---
Providers/Reason For Consult Consulting Physician/Specialty*: Abdifatah Leslie MD/ Cardiology Reason for Consult*: Worsening angina Requesting Physician: Dr Ortiz Attending Physician: Shiv Garcia MD Primary Care Provider: Germain Bradley MD History of Present Illness History of Present Illness Julee Ren is a 76 year old male with past medical history of coronary artery disease status post CABG about 10 years ago he had CRUZ to LAD, SVG to PDA and jump graft to OM1 and OM 2. He was recently seen by Dr. Thorpe in cardiology office for worsening chest pain symptoms. Plan was to perform outpatient coronary angiography. According to patient and his , he has been having worsening chest pain with any degree of exertion that started about 1 month back. Also gets short of breath. His recent echo showed normal LV systolic function. This morning he had excruciating substernal chest discomfort. He also had an episode of vomiting. His troponins are negative. EKG does not show ischemic changes. Review of Systems General: Reports: 10 or more systems reviewed and unremarkable except in HPI and below Const: Denies: fever(s) or chills Eyes: Denies: change in vision ENMT: Denies: throat pain Card: Reports: chest pain and lightheadedness Resp: Denies: dyspnea GI: Reports: nausea; Denies: hematochezia : Denies: flank pain Musc: Denies: neck pain Skin/Breast: Denies: rash Neuro: Denies: headache(s) Psych: Denies: anxiety or depression Endo: Denies: polyuria Homar/Lymph: Denies: easy bruising All/Imm: Denies: urticaria Medications/Allergies Home Medications Medication Instructions Recorded Confirmed Last Taken Type allopurinol 300 mg tablet 300 mg PO QAM tab 11/13/21 12/21/21 12/19/21 History aspirin 325 mg tablet 325 mg PO QAM 11/13/21 12/21/21 12/19/21 History clopidogrel 75 mg tablet 75 mg PO QAM 11/13/21 12/21/21 12/19/21 History colchicine 0.6 mg tablet 0.6 mg PO DAILY PRN tab 11/13/21 12/21/21 Unknown History guaifenesin 600 mg tablet, 600 mg PO DAILY PRN tab 11/13/21 12/21/21 Unknown History extended release 12 hr (Mucinex) lisinopril 10 mg tablet 10 mg PO QAM 11/13/21 12/21/21 12/19/21 History metoprolol tartrate 50 mg tablet 50 mg PO QAM 11/13/21 12/21/21 12/19/21 History ondansetron HCl 4 mg tablet 4 mg PO Q4H PRN tab 11/13/21 12/21/21 Unknown History tamsulosin 0.4 mg capsule 0.4 mg PO QAM 11/13/21 12/21/21 Unknown History docusate sodium 100 mg capsule 100 mg PO QAM 12/21/21 12/21/21 Unknown History (Stool Softener) isosorbide mononitrate 30 mg 30 mg PO QAM 12/21/21 12/21/21 12/19/21 History tablet,extended release 24 hr nitroglycerin 0.4 mg sublingual 0.4 mg SUBLINGUAL Q5M PRN 12/21/21 12/21/21 Unknown History tablet (Nitrostat) Allergies Allergy/AdvReac Type Severity Reaction Status Date / Time No Known Drug Allergies Allergy Unknown unknown Verified 12/21/21 09:43 PFSH Acute PFSH: Medical History Benign prostatic hyperplasia CAD (coronary artery disease) Chest pain Gout History of diverticulitis With history of colonic rupture requiring colostomy Hypertension PVD (peripheral vascular disease) SOB (shortness of breath) Surgical History History of appendectomy History of colostomy reversal History of coronary artery stent placement Hx of CABG Family History Other CAD (coronary artery disease) Diabetes Social History Smoking and tobacco status: former smoker Alcohol intake: never Vitals/I&O/Wt Last Vital Signs Temp 97.7 F 12/21/21 05:10 Pulse 73 12/21/21 07:55 Resp 18 12/21/21 07:55 BP 101/63 12/21/21 07:55 Pulse Ox 94 12/21/21 07:55 12/20/21 12/21/21 12/21/21 22:59 06:59 14:59 Intake Total 1000 / 1000 500 / 500 Balance 1000 / 1000 500 / 500 Weight last 48 hrs Weight 210 lb Physical Exam Narrative: GENERAL: Patient is alert, awake and oriented x3. [] NECK: No jugular vein distension. [] HEENT: No cyanosis. No icterus. No pallor. [] HEART: Regular S1 and S2. No murmur, rub or gallop. [] LUNGS: Clear to auscultate bilaterally. [] ABDOMEN: Soft, nontender and nondistended. Positive bowel sounds. No guarding, rebound or tenderness. [] CENTRAL NERVOUS SYSTEM: Grossly nonfocal. [] EXTREMITIES: Lower extremities with 1+ edema bilaterally. Data : 12/21/21 04:45 12/21/21 04:45 A&P Assessment and plan (1) Hypertension: Status: Acute (2) Hx of CABG: Status: Acute (3) CAD (coronary artery disease): Status: Acute (4) SOB (shortness of breath): Status: Acute (5) Chest pain: Status: Acute Plan Patient with significant prior coronary artery disease has presented with worsening anginal symptoms. He was scheduled to undergo outpatient coronary angiogram however had excruciating pain symptoms today. We will proceed with coronary angiogram with possible percutaneous coronary intervention. Risks and benefits of the procedures have been discussed 2 hour trop is negative. EKG not showing ischemic changes Continue aspirin and plavix Order echocardiogram Thank you for involving us with care of this patient. We will continue to follow. Please call with questions Coding Level of Care Code Acute Advance Agent for Charles Fwd Diagnoses Hypertension I10 Hx of CABG Z95.1 CAD (coronary artery disease) I25.10 SOB (shortness of breath) R06.02 Chest pain R07.9
[2021-12-21 10:09] LABS: Estmated Average Glucose 186; Hemoglobin A1C 8.1 % (4.0-6.0)
--- NOTE | 2021-12-21 10:28 | XACV_ITS ---
Exam Room: [facility] Ht: 183 cm Wt: 95 kg BSA: 2.22 m2 Gender: Male : 1945 Any Known Allergies: No known allergies Exam Priority: Routine Procedure(s): Procedure Description: Diagnostic procedure Procedure Description: Left Heart Catheterization Procedure Description: Aortogram Procedure Description: Coronary Angiography Diagnostic Cath Status: Urgent Diagnostic Findings * Left Main has moderate disease. * Mid Left Anterior Descending: severe 90% stenosis, NOMAN: 3 flow. Distal LAD has severe disease. Competitive flow is seen from CRUZ to LAD. Distal LAD supplies collaterals to RCA. * Grafts: CRUZ to LAD: Patent SVG to PDA and SVG to OM are occluded. * Mid Right Coronary Artery: total occlusion, NOMAN: 0 flow. * Proximal Circumflex: total occlusion, NOMAN: 0 flow. * Coronary angiography shows right dominance. Conclusions 1. Severe multivessel [place] coronary artery disease. 2. Patent CRUZ to LAD. Occluded SVG to OM and SVG to PDA. 3. Chest pain likely from ischemia in the RCA territory supplied by the collateral blood flow from distal LAD. Medical therapy. Recommendations * Aggressive medical therapy. Add ranexa. * Continue plavix. * Continue isosorbide mononitrate. * Outpatient cardiology follow up in 4 weeks. Interventional RX Recommendation: medical therapy and/or counseling Diagnostic RX Recommendation: medical therapy and/or counseling Pressures Phase:Rest AO : 101 / 62 ( 80 ) @ 12:02:00 PM 113 / 57 ( 76 ) @ 12:21:00 PM 112 / 56 ( 77 ) @ 12:21:00 PM LV : 106 / -6 / 13 @ 12:21:00 PM 108 / -7 / 13 @ 12:21:00 PM Valves Phase:DefaultPhase AV : 0.0 @ 11:41:40 AM AV Mean Gradient: 0.0 @ 11:41:40 AM Clinical Evaluation EBL: 5mL-10mL Procedural Details Procedure Consent Obtained. Pre-Procedure Time Out. Identified patient by full name and date of as verbalized by the patient/guarantor. Does the consent match the physician's order: Yes. Accurate & Complete Informed Consent: Yes. Inpatient/Outpatient History & Physical on Chart: Yes. If H&P is completed, is and addenduem needed: No. Visualize and Verify Site with Patient/Guarantor: N/A. Relevant Radiology Images available: Yes. Procedure started. [facility] Clinical Fraility Score: 3: Managing Well. Regulatory Submissions Associate Indications: Worsening Angina/Unstable Angina. Chest Pain Symptom Assessment: Typical Angina Symptoms. Cardiovascular Instability: No. Correct patient, site and procedure confirmed by cath team. Current diagnosis: Unstable angina. PERRLA. Strong, equal hand weight analyst bilaterally. Lungs clear x 5 lobes. IV Site on Arrival: 18 gauge in the right hand. IV Site on Arrival: 18 gauge in the left hand. IV Fluids: 0.9% NaCl at KVO. 0 mL infused prior to laboratory geneticist. Pre Procedural Pulses: bilateral dorsalis pedis was Doppled. Pre Procedural Pulses: bilateral posterior tibial was Doppled. Oxygen started at 2liters/min via nasal canula. bilateral groins was prepped with chloroprep then draped in the usual sterile fashion. Physician notified. Baseline sample Acquired. HR: 83 BPM. Patient's family in the radiology waiting room. Dr. Leslie will update at the completion of the procedure. Physician arrived. Physician scrubbed in. Immediate Pre-Procedure Time Out. Correct Patient: Yes; Correct Procedure: Yes; Correct Site: Yes; Correct Patient Position: Yes; Correct Supplies: Yes; Dried Flammable Prep: Yes; Blood Products Available: N/A;. Lidocaine 1% infiltrated to the left groin. Arterial access obtained with micropuncture set. A 5 german JL4 catheter in over wire. Multiple views taken of left coronary artery. Catheter removed over the standard wire. A 5 german JR4 catheter in over wire. Multiple views taken of right coronary artery. Redirecting to grafts. SVG to RCA occluded. SVG to OM occluded. CRUZ to LAD visualized. A 5 german Angled Pig catheter in over wire. EDP Sample taken: LV 106/-7,13; HR: 78 BPM; SpO2: 98%. Pullback taken: LV 108/-8,13; AO 113/57(76); Mean: 0mmHg, Peak to Peak: 0mmHg, SEP: 19sec/min; HR: 74 BPM; SpO2: 98%. Catheter redirected to the Aorta. Aortogram performed in UZAIR @ 20 mL/second for a total of [address] Leslie scrubbed out. Sheath(s) removed and manual pressure held until hemostasis was achieved. Sterile 4x4 and Op-site applied to the puncture site. No oozing or hematoma noted. Post sheath removal instructions were given and the patient verbalized understanding. Post Procedure: Pulses reassessed and unchanged. PERRLA. Strong, equal hand weight analyst bilaterally. No VTE prophylaxis required. Medication's Wasted: Lidocaine 1% = 1 mL. Total IV fluids: 44 mL. A Suture was successful obtaining hemostatsis at the Right Femoral artery insertion site. Post-op diagnosis: Severe multi vessel CAD, occluded SVGs. Complications: none. Estimated blood loss: 5mL-10mL. Responsiveness - Normal response to verbal stimuli; alert and oriented, PERRLA. Airway - Unaffected, no intervention required; spontaneous ventilation. Circulation: W/N/L, pulses unchanged. Nausea/Vomiting: No. Procedure completed. Patient transferred by bed to 1st floor. Vital chart was stopped. Catheter removed over the standard wire. Catheter removed over the standard wire. Access Site Site: Right Femoral artery Sheath Size: 6 Fr Hemostasis Method: Suture Hemostasis Success: Successful Procedure Medications Start: 10:52 AM Stop: 10:52 AM Medication: Versed Amount: 1 mg Route: I.V. Start: 10:52 AM Stop: 10:52 AM Medication: Fentanyl Amount: 50 mcg Route: I.V. Start: 11:24 AM Stop: 11:24 AM Medication: Fentanyl Amount: 50 mcg Route: I.V. Start: 11:24 AM Stop: 11:24 AM Medication: Versed Amount: 1 mg Route: I.V. I, the attending physician, have reviewed and verified all procedure medications. Yes, all medications given per verbal order History/Risk Factors Hypertension: Yes Dyslipidemia: No Peripheral Arterial Disease (PAD): Yes Myocardial Infarction ([place]): No Obesity: No Renal Disease: No Tobacco Use: Former Prior Interventions PCI: No CABG: No Valve Surgery: No Report Signatures Finalized by Abdifatah Leslie MD on 01/04/2022 10:09 PM
--- NOTE | 2021-12-21 11:02 | ECG_ITS ---
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 Measurements Intervals [place] Rate: 117 P: 62 [place]: 143 QRS: 83 QRSD: 101 T: 62 QT: 333 QTc: 466 Interpretive Statements SINUS TACHYCARDIA MODERATE ST DEPRESSION [0.05+ mV ST DEPRESSION] Compared to ECG 08/13/2016 11:44:14 ST (T wave) deviation now present Sinus bradycardia no longer present Electronically Signed On 12-21-2021 17:42:06 CDT by Perlita Snowden M.D. [id number]
--- NOTE | 2021-12-21 11:03 | PC.NURSE ---
Provider on unit for discussion of care instructions to non administer lovenox due to procedure
--- NOTE | 2021-12-21 11:38 | W.PM.OPSUD ---
Surgery/Procedure H&P Update DATE OF PROCEDURE: December 21, 2021 DATE H&P PERFORMED: 12/21/21 H&P UPDATE INFORMATION: I have reviewed H&P completed within last 30 days, I have examined patient prior to procedure and No changes to prior documentation PREOP DIAGNOSIS: Worsening angina PRIMARY INDICATION FOR PROCEDURE: Worsening angina PLANNED PROCEDURE: Left heart cath with possible percutaneous coronary intervention PATIENT REASSESSED PRIOR TO SEDATION, WITH NO CHANGE NOTED: Yes PHYSICAL EXAM: alert, oriented x 3, clear to auscultation bilaterally and regular rate & rhythm AIRWAY EVAL/ANESTHESIA PLAN: ASA III, Monitored Anesthesia, Local Anesthesia, Risks, benefits & alternatives of sedation and/or procedure discussed and Patient agrees to continue as planned
--- NOTE | 2021-12-21 11:59 | US_ITS ---
WS: [id number] RIGHT UPPER QUADRANT ULTRASOUND HISTORY: nausea COMPARISON: 01/23/2013 Extremely limited evaluation RIGHT upper quadrant due to body habitus and gas. Liver: 17.8 cm in length. Enlarged heterogeneous liver. Very coarse echogenic liver with poor penetra tion. The entire liver is not imaged. No bile duct dilatation is evident. Portal Vein: Normal hepatopetal flow with monophasic waveform. Gallbladder: Normally distended gallbladder with no stones or wall thickening. CBD: 0.5 cm Pancreas: Completely obscured by bowel gas. Right kidney: 11.2 cm in length. Normal size and echogenicity. No hydronephrosis or mass. Aorta and IVC: Unremarkable abdominal aorta and IVC. No ascites. US/US gall bladder [id number] IMPRESSION: 1. Negative gallbladder. 2. Technically very limited evaluation of the RIGHT upper quadrant. 3. Moderate hepatomegaly with severe hepatic steatosis.
--- NOTE | 2021-12-21 11:59 | USCV_ITS ---
Julee Ren Age: 76 Gender: M : 1945 Exam Date: 12/21/2021 13:10 Ordering Phys: Shiv Garcia MD Technologist: MORGAN [place] [facility] [place] Indication: CHEST PAIN BP: 120 / 63 HR: 62 Rhythm: Sinus Technical Quality: Adequate MEASUREMENTS (Male / Female) Normal Values 2D ECHO LV Diastolic Diameter PLAX 4.8 cm 4.2 - 5.9 / 3.9 - 5.3 cm LV Systolic Diameter PLAX 3.5 cm IVS Diastolic Thickness 1.4 cm 0.6 - 1.0 / 0.6 - 0.9 cm IVS Systolic Thickness 2.2 cm LVPW Diastolic Thickness 1.3 cm 0.6 - 1.0 / 0.6 - 0.9 cm LVPW Systolic Thickness 1.6 cm LVOT Diameter 2.0 cm LV Ejection Fraction 2D Teich 54.6 % LV Ejection Fraction MOD 2C 55.8 % LV Ejection Fraction 2C AL 56.1 % LA Diameter 3.3 cm LA Width 3.1 cm LA Height 4.4 cm RA Width 3.5 cm RA Height 3.8 cm Aorta at Sinotubular Diameter 2.6 cm M-MODE Aortic Annulus Diameter 3.3 cm LA Ao Ratio MM 1.0 MV E Point Septal Separation 0.6 cm DOPPLER Right Atrial Pressure 8.0 mmHg FINDINGS Left Ventricle Right Ventricle Right Atrium Left Atrium Mitral Valve Aortic Valve Tricuspid Valve Pulmonic Valve Pericardium Aorta IVC CONCLUSIONS This is a limited echocardiogram performed to assess LV systolic function LV systolic function is normal with EF of 50-55% Regional wall motion is grossly normal Compared to prior echocardiogram from 10/30/2021, no significant changes are noted Abdifatah Leslie MD (Electronically Signed) Final Date: 21 Dec 2021 21:41 S
[2021-12-21] MEDS: pantoprazole DR 40 mg Tablet PO (18:43)
[2021-12-21] MEDS: enoxaparin 100 mg/mL Syringe SUBCUT (20:59)
[2021-12-21] MEDS: atorvastatin 40 mg Tablet PO (20:59)
[2021-12-22] VITALS (11 sets, daily range): BP systolic 100–125; BP diastolic 64–71; PULSE 77–100; RESP 13–31; TEMP 36.6–37; O2SAT 94–98
[2021-12-22 04:16] LABS: Blood Urea Nitrogen 36 mg/dL (8-23); Calcium 8.3 mg/dL (8.5-10.5); Carbon Dioxide 22 mmol/L (22-29); Chloride 106 mmol/L (98-107); Chol HDL Ratio 4.85 mg/dL (1.0-5.00); Cholesterol 131 mg/dL (0-200); Glucose 131 mg/dL (65-115); HDL Cholesterol 27 mg/dL (60-100); LDL Cholesterol Calculated 50 mg/dL (50-129); LDL HDL Ratio 1.85 RATIO (0.00-3.22); Magnesium 1.9 mg/dL (1.7-2.3); Osmolality Calculated 296 mOsm/kg (285-295); Sodium 138 mmol/L (136-145); Triglycerides 268 mg/dL (0-150)
[2021-12-22 04:24] LABS: Anion Gap 14.4 (5-19); Potassium 4.4 mmol/L (3.5-5.1)
[2021-12-22 04:29] LABS: Basophils % 0.3 %; Eosinophils # 0.2 10^3/uL (0.0-0.8); Eosinophils % 1.3 %; Hemoglobin 10.5 g/dL (11.7-16.6); Lymphocytes # 4.4 10^3/uL (0.8-4.8); Lymphocytes % 38.8 %; Mean Corpuscular HGB Conc 32.8 g/dL (30.0-36.0); Mean Corpuscular Volume 94.4 fl (80-94); Mean Platelet Volume 11.8 fL (7.4-10.4); Monocytes # 0.6 10^3/uL (0.2-0.9); Monocytes % 5.7 %; Neutrophils # 6.05 10^3/uL (1.8-7.7); Neutrophils % 53.5 %; Nucleated Red Blood Cells % 0 %; Platelet Count 189 10^3/cmm (130-400); Red Blood Count 3.39 10^6/uL (4.1-5.3); Red Cell Distribution Width 13.8 % (12.1-15.1); White Blood Count 11.3 10^3/uL (4.0-10.0)
[2021-12-22] MEDS: aspirin 325 mg Tablet PO (05:08)
[2021-12-22] MEDS: clopidogrel 75 mg Tablet PO (05:08)
[2021-12-22] MEDS: allopurinol 300 mg Tablet PO (05:08)
[2021-12-22] MEDS: pantoprazole DR 40 mg Tablet PO ×2 (08:51→17:41)
--- NOTE | 2021-12-22 09:00 | PC.CHAP ---
Pastoral Care Encounter/Spiritual Assessment Type of Contact [] Declined superintendent pressure visit [] Patient/Family/Request visit [] Outpatient visit [] Follow-up visit [] Physician referral [] Code/Alert [x] Routine visit [] Staff referral [] Actively dying [] Patient sleeping [x] Family support [] [] Out of room [] Palliative care [] [] Receiving care in room [] Pre-surgical visit [] Trauma [] Long length of stay [] ICU visit [] Other: Relational/Emotional Strength [] Patient feels connected with others/family/visitors/staff [] Distress [] Loneliness/isolation [] Abandonment Spirituality of Patient [] Person of Sara [] Attends Faith of their Sara [] Believes in Prayer [] Reads Bible or Restorationist materials [] There are Spiritual issues to be addressed Weather Stripper Interventions [x] Prayer [] Active listening [] Non-anxious presence [] Spiritual/emotional support [] Crisis/trauma care [] Spiritual counseling [] Bereavement support [] Provided bereavement packet [] Provided Bible/devotional materials [] Provided toy/stuffed animal, coloring book to patient or family member [] Provided Communion [] Anointing/[place] [] Salvation [x] Completed spiritual assessment [] Other: Impact on Illness or Injury [] Angry [] Fearful [] Anxious [] Often cries [] Exhaustion [] Unable to work [] Unable to attend temple [] Unable to walk/stand [] Unable to read [] Unable to drive [] Unable to eat/drink [] Unable to sleep [] Unable to be with family [] Patient intubated [] Other: Summary Time spent with patient
--- NOTE | 2021-12-22 09:48 | PM.CONSULT ---
Providers/Reason For Consult Consulting Physician/Specialty*: Roger Grimm MD Reason for Consult*: Black stool Requesting Physician: Dr. Garcia Attending Physician: Shiv Garcia MD Primary Care Provider: Germain Bradley MD History of Present Illness History of Present Illness Mr. Julee Ren is a 76 year old male with well-known history of coronary artery disease. Presented with chest pain and patient was admitted to the hospitalist service. And cardiac consultation was initiated. In the interim patient has been having black stools for the past couple of days to his admission and general surgery was consulted for further evaluation. Patient currently stable and denies bleeding per orifices. General surgery was consulted for EGD to rule out potential underlying gastropathy or ulcers. With the plan to resume blood thinners on the patient Review of Systems General: Reports: 10 or more systems reviewed and unremarkable except in HPI and below Medications/Allergies Home Medications Medication Instructions Recorded Confirmed Last Taken Type allopurinol 300 mg tablet 300 mg PO QAM tab 11/13/21 12/21/21 12/19/21 History aspirin 325 mg tablet 325 mg PO QAM 11/13/21 12/21/21 12/19/21 History clopidogrel 75 mg tablet 75 mg PO QAM 11/13/21 12/21/21 12/19/21 History colchicine 0.6 mg tablet 0.6 mg PO DAILY PRN tab 11/13/21 12/21/21 Unknown History guaifenesin 600 mg tablet, 600 mg PO DAILY PRN tab 11/13/21 12/21/21 Unknown History extended release 12 hr (Mucinex) lisinopril 10 mg tablet 10 mg PO QAM 11/13/21 12/21/21 12/19/21 History metoprolol tartrate 50 mg tablet 50 mg PO QAM 11/13/21 12/21/21 12/19/21 History ondansetron HCl 4 mg tablet 4 mg PO Q4H PRN tab 11/13/21 12/21/21 Unknown History tamsulosin 0.4 mg capsule 0.4 mg PO QAM 11/13/21 12/21/21 Unknown History docusate sodium 100 mg capsule 100 mg PO QAM 12/21/21 12/21/21 Unknown History (Stool Softener) isosorbide mononitrate 30 mg 30 mg PO QAM 12/21/21 12/21/21 12/19/21 History tablet,extended release 24 hr nitroglycerin 0.4 mg sublingual 0.4 mg SUBLINGUAL Q5M PRN 12/21/21 12/21/21 Unknown History tablet (Nitrostat) Allergies Allergy/AdvReac Type Severity Reaction Status Date / Time No Known Drug Allergies Allergy Unknown unknown Verified 12/22/21 09:55 Current Medications Generic Name Dose Route Start Last Admin Trade Name Jillian PRN Reason Stop Dose Admin Allopurinol 300 mg 12/22/21 06:00 12/22/21 05:08 Allopurinol 300 Mg Tablet PO 300 mg QAM ELLEN Administration Atorvastatin Calcium 40 mg 12/21/21 21:00 12/21/21 20:59 Atorvastatin 40 Mg Tablet PO 40 mg BEDTIME ELLEN Administration Clopidogrel Bisulfate 75 mg 12/22/21 06:00 12/22/21 05:08 Clopidogrel 75 Mg Tablet PO 75 mg QAM ELLEN Administration Pantoprazole Sodium 40 mg 12/21/21 18:00 12/22/21 08:[address] 40 Mg Tablet PO 40 mg BID ELLEN Administration PFSH Acute PFSH: Medical History Benign prostatic hyperplasia CAD (coronary artery disease) Chest pain Gout History of diverticulitis With history of colonic rupture requiring colostomy Hypertension PVD (peripheral vascular disease) SOB (shortness of breath) Surgical History History of appendectomy History of colostomy reversal History of coronary artery stent placement Hx of CABG Family History Other CAD (coronary artery disease) Diabetes Social History Smoking and tobacco status: former smoker Alcohol intake: never Vitals/I&O/Wt Last Vital Signs Temp 98.2 F 12/22/21 06:57 Pulse 80 12/22/21 06:57 Resp 19 H 12/22/21 06:57 BP 100/65 12/22/21 06:57 Pulse Ox 96 12/22/21 06:57 12/21/21 12/22/21 12/22/21 22:59 06:59 14:59 Intake Total 720 / 1220 120 / 120 Balance 720 / 1220 120 / 120 Weight last 48 hrs Weight 210 lb Physical Exam Const: COMMON NORMALS: no acute distress and patient oriented x3 GENERAL APPEARANCE: cooperative ORIENTATION/CONSCIOUSNESS: Yes awake, Yes oriented to person, Yes oriented to place and Yes oriented to time HENMT: COMMON NORMALS: normocephalic HEAD & SCALP: normocephalic Eye: COMMON NORMALS: Equal, round and reactive pupils present and no scleral icterus PUPIL: Yes Equal, round and reactive pupils present Lymph: LYMPHATIC: no lymphadenopathy noted Chest: COMMONS NORMALS: normal inspection of the chest Resp: COMMON NORMALS: normal respiratory effort and clear to auscultation bilaterally AUSCULTATION: clear to auscultation bilaterally Cardio: COMMON NORMALS: S1 normal heart sound present and S2 normal heart sound present; negative for No murmurs present (Cardio) HEART SOUNDS: S1 normal heart sound present and S2 normal heart sound present GI: COMMON NORMALS: Soft to palpation; negative for No hepatosplenomegaly present INSPECTION: Yes normal to inspection PALPATION: Yes Soft to palpation, No Firmness to palpation present (GI), No Tenderness to palpation present (GI), No Guarding due to palpation present (GI), No Rigid due to palpation and No No hepatosplenomegaly present Neuro: COMMON NORMALS: patient oriented x3 SENSORIUM/ORIENTATION: Yes oriented to person, Yes oriented to place and Yes oriented to time Psych: COMMON NORMALS: mental status grossly normal Skin: COMMON NORMALS: no rashes or lesions noted GENERAL SKIN EXAM: no rashes or lesions noted Data : 12/22/21 15:34 12/22/21 03:05 Micro: Microbiology 12/21/21 21:38 Occult Blood (FIT) - Final Stool Routine Collection A&P Assessment and plan (1) Black stool: Plan of care; After thorough history and physical examination and reviewing the chart, plan to perform a diagnostic esophagogastroduodenoscopy with possible biopsy in the GI lab. I discussed with the patient in detail the risk,benefits,alternatives and indications.The risk of aspiration, bleeding, soft tissue injury, perforation of the stomach/esophagus and other potential concomitant complications were explained to the patient in details,aslo the potential need for Thoracic and or Abdominal surgery to repair any complications.The patient understood this well and did agree to proceed. Rationale was carefully and clearly discussed with the patient.Appropriate informed consent have been reviewed and signed All questions have been answered and all concerns have been addressed to patient's satisfaction. Prior to perform the procedure will check with hospitalist service about any potential cardiac concern Status: Acute Consult Attestations Medical Necessity Statement: Per admitting service Coding Level of Care Code Acute Strategic Development Manager for Chg Fwd Exam Comprehensive Diagnoses Black stool K92.1
--- NOTE | 2021-12-22 10:13 | PM.PN ---
Subjective Subjective: Patient underwent coronary angiography yesterday that showed occluded SVG graft to RCA and OM. CRUZ to LAD is patent and supplying LAD, diagonal arteries and collaterals to RCA Vitals/I&O/Wt Last Vital Signs Temp 98.2 F 12/22/21 06:57 Pulse 90 12/22/21 09:59 Resp 19 H 12/22/21 06:57 BP 100/65 12/22/21 06:57 Pulse Ox 96 12/22/21 09:59 12/21/21 12/22/21 12/22/21 22:59 06:59 14:59 Intake Total 720 / 1220 120 / 120 Balance 720 / 1220 120 / 120 Weight last 48 hrs Weight 210 lb Physical Exam Narrative: GENERAL: Patient is alert, awake and oriented x3. [] NECK: No jugular vein distension. [] HEENT: No cyanosis. No icterus. No pallor. [] HEART: Regular S1 and S2. No murmur, rub or gallop. [] LUNGS: Clear to auscultate bilaterally. [] ABDOMEN: Soft, nontender and nondistended. Positive bowel sounds. No guarding, rebound or tenderness. [] CENTRAL NERVOUS SYSTEM: Grossly nonfocal. [] EXTREMITIES: Lower extremities with 1+ edema bilaterally. Data : 12/22/21 03:05 12/22/21 03:05 Micro: Microbiology 12/21/21 21:38 Occult Blood (FIT) - Final Stool Routine Collection A&P Assessment and plan (1) Hypertension: Status: Acute (2) Hx of CABG: Status: Acute (3) CAD (coronary artery disease): Status: Acute (4) SOB (shortness of breath): Status: Acute (5) Chest pain: Status: Acute Plan Patient with significant prior coronary artery disease has presented with worsening anginal symptoms. He was scheduled to undergo outpatient coronary angiogram however had right sided pain symptoms yesterday. Associated with shortness of breath and vomitting. Coronary angiogram demonstrated severe CAD with occluded SVGs to OM and RCA. CRUZ to LAD is patent and supplying collaterals to RCA as well. LV systolic function is normal. Medical therapy recommended 2 hour trop is negative. EKG not showing ischemic changes Patient has been having black stools and his hemoglobin has dropped. Thank you for involving us with care of this patient. We will continue to follow. Please call with questions Attestations Medical Necessity Statement*: Care expected to cross 2 midnights. 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
--- NOTE | 2021-12-22 11:35 | PM.PN ---
Subjective Subjective: Julee reports he is doing okay. He has had no recurrent discomfort. We reviewed his angiogram results. He denies any shortness of breath or nausea today. He did have some dark stool last night, somewhat tarry, and a did test positive for blood. He reports no bright red blood. Medications: Reviewed: Yes Vitals/I&O/Wt Last Vital Signs Temp 98.2 F 12/22/21 06:57 Pulse 90 12/22/21 09:59 Resp 19 H 12/22/21 06:57 BP 100/65 12/22/21 06:57 Pulse Ox 96 12/22/21 09:59 12/21/21 12/22/21 12/22/21 22:59 06:59 14:59 Intake Total 720 / 1220 120 / 120 Balance 720 / 1220 120 / 120 Weight last 48 hrs Weight 95.254 kg Physical Exam Narrative: General exam is a white male, no distress Neck is supple no lymphadenopathy or thyromegaly Cardiovascular regular rate and rhythm without murmur, no S3 or S4 Lungs no wheezing. Clear. Improved aeration from yesterday. Abdomen is soft nontender positive bowel sounds. No obvious organomegaly Extremities no cyanosis clubbing or edema, cap refill brisk Skin no rash Data : 12/22/21 03:05 12/22/21 03:05 Micro: Microbiology 12/21/21 21:38 Occult Blood (FIT) - Final Stool Routine Collection A&P Assessment and plan (1) Chest pain: This is consistent with unstable angina. He has had multiple episodes. He has visited with cardiology recently, and an angiogram was recommended. Angiogram was performed on December 21. No intervention performed. Medical treatment recommended. Please see report for full details. Continue Plavix, statin Beta-donald held secondary lower blood pressures Lovenox, aspirin held secondary to concern of GI bleed Limited echo was performed and no significant change TSH checked and normal Reviewed with primary care provider. He has had a recent CTA demonstrating no pulmonary embolism. I reviewed the report as well. Status: Acute (2) CAD (coronary artery disease): See notations above Status: Acute (3) Hypertension: Hypotensive on arrival to the emergency department. May have been due to nitroglycerin. Hold off on antihypertensives currently. Status: Acute Plan History of black stool. Found to be heme positive overnight. Hemoglobin is 10.5 consistent with development of acute blood loss anemia Only had 1 bowel movement. Placed on Protonix twice daily yesterday. We will hold anticoagulants currently. Will consult surgery for possible EGD tomorrow. Recheck hemoglobin this afternoon. Hyperglycemia. Check hemoglobin A1c Full code Lovenox will suffice for DVT prophylaxis Attestations Medical Necessity Statement*: Needs continued hospitalization for evaluation of GI bleeding and anemia Coding Level of Care Code Acute Marketing Technology Specialist for Chg Fwd Diagnoses Chest pain R07.9 CAD (coronary artery disease) I25.10 Hypertension I10
[2021-12-22 16:01] LABS: Hematocrit 30.4 % (42.0-52.0); Hemoglobin 9.9 g/dL (11.7-16.6)
[2021-12-22 16:21] LABS: Glucose Point of Care 184 mg/dL (70-110)
[2021-12-22] MEDS: insulin lispro 100 unit/1 mL SUBCUT (17:41)
[2021-12-22 20:51] LABS: Glucose Point of Care 139 mg/dL (70-110)
[2021-12-22] MEDS: atorvastatin 40 mg Tablet PO (21:30)
[2021-12-23] VITALS (9 sets, daily range): BP systolic 96–126; BP diastolic 61–82; PULSE 72–93; RESP 15–20; TEMP 36.2–36.5; O2SAT 91–97
[2021-12-23 04:09] LABS: Basophils % 0.2 %; Eosinophils # 0.2 10^3/uL (0.0-0.8); Eosinophils % 2.1 %; Hemoglobin 9.9 g/dL (11.7-16.6); Lymphocytes # 3.2 10^3/uL (0.8-4.8); Mean Platelet Volume 11.2 fL (7.4-10.4); Monocytes # 0.6 10^3/uL (0.2-0.9); Monocytes % 6.5 %; Neutrophils # 4.62 10^3/uL (1.8-7.7); Nucleated Red Blood Cells % 0 %; Platelet Count 192 10^3/cmm (130-400); Red Blood Count 3.19 10^6/uL (4.1-5.3); Red Cell Distribution Width 13.6 % (12.1-15.1); White Blood Count 8.6 10^3/uL (4.0-10.0)
[2021-12-23 04:27] LABS: Anion Gap 16.1 (5-19); Blood Urea Nitrogen 27 mg/dL (8-23); Calcium 8.9 mg/dL (8.5-10.5); Carbon Dioxide 23 mmol/L (22-29); Chloride 102 mmol/L (98-107); Glucose 145 mg/dL (65-115); Osmolality Calculated 292 mOsm/kg (285-295); Potassium 4.1 mmol/L (3.5-5.1); Sodium 137 mmol/L (136-145)
[2021-12-23 07:26] LABS: Glucose Point of Care 162 mg/dL (70-110)
--- NOTE | 2021-12-23 08:35 | P.PN_ITS ---
Subjective Subjective: Patient is stable. Had chest pain episode Vitals/I&O/Wt Last Vital Signs Temp 98.6 F 12/22/21 15:08 Pulse 84 12/23/21 08:15 Resp 15 12/23/21 08:15 BP 121/68 12/23/21 08:15 Pulse Ox 94 12/23/21 08:15 12/22/21 12/23/21 12/23/21 22:59 06:59 14:59 Intake Total 360 / 480 Balance 360 / 480 Physical Exam Narrative: GENERAL: Patient is alert, awake and oriented x3. [] NECK: No jugular vein distension. [] HEENT: No cyanosis. No icterus. No pallor. [] HEART: Regular S1 and S2. No murmur, rub or gallop. [] LUNGS: Clear to auscultate bilaterally. [] ABDOMEN: Soft, nontender and nondistended. Positive bowel sounds. No guarding, rebound or tenderness. [] CENTRAL NERVOUS SYSTEM: Grossly nonfocal. [] EXTREMITIES: Lower extremities with 1+ edema bilaterally. Data : 12/23/21 03:35 12/23/21 03:35 A&P Assessment and plan (1) Hypertension: Status: Acute (2) Hx of CABG: Status: Acute (3) CAD (coronary artery disease): Status: Acute (4) SOB (shortness of breath): Status: Resolved (5) Chest pain: Status: Acute Plan Patient with significant prior coronary artery disease has presented with worsening anginal symptoms. He was scheduled to undergo outpatient coronary angiogram however had right sided pain symptoms yesterday. Associated with sh ortness of breath and vomitting. Coronary angiogram demonstrated severe CAD with occluded SVGs to OM and RCA. CRUZ to LAD is patent and supplying collaterals to RCA as well. LV systolic function is normal. Can put patient on ranexa 500mg BID as has chest discomfort. It likely is from the collaterals to RCA from LAD. 2 hour trop negative. EKG not showing ischemic changes Patient has been having black stools and his hemoglobin dropped. EGD showed gastritis and duodenal ulcer Thank you for involving us with care of this patient. Please call with questions Attestations Medical Necessity Statement*: Care expected to cross 2 midnights. 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
--- NOTE | 2021-12-23 10:14 | PC.CHAP ---
Pastoral Care Encounter/Spiritual Assessment Type of Contact [] Declined financial manager visit [] Patient/Family/Request visit [] Outpatient visit [] Follow-up visit [] Physician referral [] Code/Alert [x] Routine visit [] Staff referral [] Actively dying [x] Patient sleeping [] Family support [] [] Out of room [] Palliative care [] [] Receiving care in room [] Pre-surgical visit [] Trauma [] Long length of stay [] ICU visit [] Other: Relational/Emotional Strength [] Patient feels connected with others/family/visitors/staff [] Distress [] Loneliness/isolation [] Abandonment Spirituality of Patient [] Person of Sara [] Attends Adventism of their Sara [] Believes in Prayer [] Reads Bible or Pentecostalism materials [] There are Spiritual issues to be addressed Survey Worker Interventions [x] Prayer [] Active listening [] Non-anxious presence [] Spiritual/emotional support [] Crisis/trauma care [] Spiritual counseling [] Bereavement support [] Provided bereavement packet [] Provided Bible/devotional materials [] Provided toy/stuffed animal, coloring book to patient or family member [] Provided Communion [] Anointing/Moose [] Salvation [x] Completed spiritual assessment [] Other: Impact on Illness or Injury [] Angry [] Fearful [] Anxious [] Often cries [] Exhaustion [] Unable to work [] Unable to attend congregation [] Unable to walk/stand [] Unable to read [] Unable to drive [] Unable to eat/drink [] Unable to sleep [] Unable to be with family [] Patient intubated [] Other: Summary Time spent with patient
[2021-12-23] MEDS: sodium chloride 0.9% 1,000 ML 30 ML IV (11:27)
--- NOTE | 2021-12-23 11:53 | W.PM.OPSUD ---
Surgery/Procedure H&P Update DATE OF PROCEDURE: December 23, 2021 DATE H&P PERFORMED: 12/21/21 H&P UPDATE INFORMATION: I have reviewed H&P completed within last 30 days, I have examined patient prior to procedure and No changes to prior documentation CHANGES TO PREVIOUS DOCUMENTATION: Cleared by cardiology for the procedure PREOP DIAGNOSIS: Black Stool PRIMARY INDICATION FOR PROCEDURE: The same PLANNED PROCEDURE: Operation Date: 12/21/21 10:00 Proposed Procedures p Cardiac Catheterization(Not Applicable) - Abdifatah Leslie M.D Operation Date: 12/23/21 12:00 Proposed Procedures p EGD(Not Applicable) - Roger Grimm MD
--- NOTE | 2021-12-23 13:12 | P.ANESASSM_ITS ---
Pre-Anesthetic Assessment Height/Weight: Height 1.78 m Weight 95.254 kg Temp Pulse Resp BP Pulse Ox 97.2 F L 72 18 125/70 96 12/23/21 11:25 12/23/21 11:25 12/23/21 11:25 12/23/21 11:25 12/23/21 11:25 Preop Diagnosis: Black Stool Operation Date: 12/21/21 10:00 Proposed Procedures p Cardiac Catheterization(Not Applicable) - Abdifatah Leslie M.D Operation Date: 12/23/21 12:00 Proposed Procedures p EGD(Not Applicable) - Roger Grimm MD Familial anesthetic complications: none Was Beta Lala taken within 24 hours: Yes Was Clonidine taken within 24 hours: N/A Last intake: > 8hrs Social No alcohol and No tobacco Exam alert, oriented x 3, clear to auscultation bilaterally and regular rate & rhythm Airway Mallampati: Class II Pulmonary None reported CV/HEM Coronary Artery Disease and Hypertension CAD s/p occluded stents hx cabg Metabolic Diabetes Mellitus Anesthetic Plan ASA status: 3 Anesthesia: MAC Risk of > 500 ml blood loss (7ml/kg in children): No Medications/Allergies Home Medications Medication Instructions Recorded Confirmed Last Taken Type allopurinol 300 mg tablet 300 mg PO QAM tab 11/13/21 12/21/21 12/19/21 History aspirin 325 mg tablet 325 mg PO QAM 11/13/21 12/21/21 12/19/21 History clopidogrel 75 mg tablet 75 mg PO QAM 11/13/21 12/21/21 12/19/21 History colchicine 0.6 mg tablet 0.6 mg PO DAILY PRN tab 11/13/21 12/21/21 Unknown History guaifenesin 600 mg tablet, 600 mg PO DAILY PRN tab 11/13/21 12/21/21 Unknown History extended release 12 hr (Mucinex) lisinopril 10 mg tablet 10 mg PO QAM 11/13/21 12/21/21 12/19/21 History metoprolol tartrate 50 mg tablet 50 mg PO QAM 11/13/21 12/21/21 12/19/21 History ondansetron HCl 4 mg tablet 4 mg PO Q4H PRN tab 11/13/21 12/21/21 Unknown History tamsulosin 0.4 mg capsule 0.4 mg PO QAM 11/13/21 12/21/21 Unknown History docusate sodium 100 mg capsule 100 mg PO QAM 12/21/21 12/21/21 Unknown History (Stool Softener) isosorbide mononitrate 30 mg 30 mg PO QAM 12/21/21 12/21/21 12/19/21 History tablet,extended release 24 hr nitroglycerin 0.4 mg sublingual 0.4 mg SUBLINGUAL Q5M PRN 12/21/21 12/21/21 Unknown History tablet (Nitrostat) Allergies Allergy/AdvReac Type Severity Reaction Status Date / Time No Known Drug Allergies Allergy Unknown unknown Verified 12/22/21 09:55 Current Medications Generic Name Dose Route Start Last Admin Trade Name Freq PRN Reason Stop Dose Admin Allopurinol 300 mg 12/22/21 06:00 12/23/21 03:19 Allopurinol 300 Mg Tablet PO Not Given QAM ELLEN Atorvastatin Calcium 40 mg 12/21/21 21:00 12/22/21 21:30 Atorvastatin 40 Mg Tablet PO 40 mg BEDTIME ELLEN Administration Sodium Chloride 1,000 mls @ 30 mls/hr 12/23/21 11:30 12/23/21 11:27 Sodium Chloride 0.9% IV 12/24/21 11:29 30 mls/hr .Q24H ELLEN Administration Insulin Human Lispro 0 unit 12/22/21 12:00 12/23/21 09:19 Insulin Lispro 100 Unit/1 Ml SUBCUT Not Given WM&BEDTIME ELLEN Protocol Pantoprazole Sodium 40 mg 12/21/21 18:00 12/22/21 17:[address] 40 Mg Tablet PO 40 mg BID ELLEN Administration PFSH Anesthesia Medical History Benign prostatic hyperplasia CAD (coronary artery disease) Chest pain Gout History of diverticulitis With history of colonic rupture requiring colostomy Hypertension PVD (peripheral vascular disease) SOB (shortness of breath) Surgical History History of appendectomy History of colostomy reversal History of coronary artery stent placement Hx of CABG Family History Other CAD (coronary artery disease) Diabetes Social History Smoking and tobacco status: former smoker Alcohol intake: never Supplemental [facility] Information History of right femoral artery repair repair after trauma Data Anesthesia : 12/23/21 03:35 12/23/21 03:35 Short CBC 12/22/21 12/22/21 12/23/21 Range/Units 03:05 15:34 03:35 WBC 11.3 H 8.6 (4.0-10.0) 10^3/uL Hgb 10.5 L 9.9 L 9.9 L (11.7-16.6) g/dL Hct 32.0 L 30.4 L 30.0 L (42.0-52.0) % MCV 94.4 H 94.0 (80-94) fl Plt Count 189 192 (130-400) 10^3/cmm Neut % (Auto) 53.5 54.0 % Neut # (Auto) 6.05 4.62 (1.8-7.7) 10^3/uL BMP 12/22/21 12/23/21 03:05 03:35 Sodium 138 137 Potassium 4.4 4.1 Chloride 106 102 Carbon Dioxide 22 23 BUN 36 H 27 H Creatinine 1.2 1.3 H Glucose 131 H 145 H Calcium 8.3 L 8.9 Cardiac Studies: Echocardiogram 10/30/21 Echocardiogram Limited Views 12/21/21
[2021-12-23] MEDS: EPINEPHrine 1 mg/mL INJ XX (13:34)
--- NOTE | 2021-12-23 13:35 | PC.NURSE ---
1 ml of epi reconstituted with 9 mL of normal saline. Used 0.5 mL of reconstitute in 5 injections.
[2021-12-23] MEDS: lidocaine 2% viscous 15 ML, aluminum-mag hydrox-simethicon 30 ML, sucralfate oral liq 1 GM PO (14:25)
[2021-12-23] MEDS: ondansetron 2 mg/ML SDV 2 mL 4 MG IVP (14:32)
--- NOTE | 2021-12-23 15:19 | PM.DCS ---
Discharge Providers Date of Admission: 12/21/21 07:49 Date of Discharge: December 23, 2021 Attending Provider at Admission: Shiv Garcia MD Attending Provider at Discharge: Shiv Garcia MD Primary Care Provider: Germain Bradley MD Diagnoses at Discharge Discharge Diagnosis (1) Black stool: Status: Acute Reason for Visit Reason for Visit: chest pain Hospital Course Hospital Course Julee is a 76-year-old white male who presented to the hospital with chest discomfort. He had recently had evaluation in cardiology clinic recommending angiogram. Troponin was not significantly elevated andno significant delta. Some ST depression was noted in his EKG. He was placed in the hospital and an angiogram was performed December 21 demonstrating occluded SVG graft to RCA and obtuse marginal. CRUZ to LAD was patent. Diagonal arteries and collaterals to RCA were noted. It was thought the patient did not need any further intervention, and should be medically managed. He had also complained of some black stools on admission. He was placed on anticoagulants and antiplatelet medication on admission. He had 1 black tarry bowel movement during his hospital stay, which was heme positive. Hemoglobin dropped from admission and stabilized at 9.9. EGD was performed on the demonstrating some esophagitis, gastritis, duodenal ulcer. No active bleeding at time of endoscopy, although recent bleeding was likely. 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 At this point he will hold off on antiplatelets, for 1 week and then restart Plavix. He will follow-up with his primary care provider and get a CBC in 3 to 5 days. He will follow-up with Dr. Grimm for possible repeat endoscopy in 4 to 6 weeks. Biopsy was performed, which will be followed up on by surgery. Cardiac medications were adjusted at discharge secondary to some lower blood pressures. Ranexa added per cardiology. I have asked that he follow-up with his primary care provider regarding elevation in A1c. Physical Exam Narrative: General exam no distress Neck is supple Cardiovascular regular rate and rhythm Lungs clear Abdomen is soft, positive bowel sounds Extremities no cyanosis clubbing or edema Discharge Data Studies Completed and Pending Completed Studies During Hospitalization Category Date Time Status XR chest 1V portable [id number] Stat Exams 12/21/21 05:02 Completed CV. echo limited [id number] Routine Ultrasound 12/21/21 11:59 Completed US gall bladder [id number] Routine Ultrasound 12/21/21 11:59 Completed Pending at discharge Category Date Time Status SALES SUPPORT REPRESENTATIVE request for service Routine Exams 12/21/21 10:28 Taken Pathology: Surgical [PTH] Routine Pth 12/23/21 13:31 Received Radiology Impressions Chest X-Ray 12/21/21 05:02 IMPRESSION: No evidence of active cardiopulmonary disease. Gallbladder Ultrasound 12/21/21 11:59 IMPRESSION: 1. Negative gallbladder. 2. Technically very limited evaluation of the RIGHT upper quadrant. 3. Moderate hepatomegaly with severe hepatic steatosis. Laboratory Results WBC 8.6 10^3/uL (4.0-10.0) 12/23/21 03:35 RBC 3.19 10^6/uL (4.1-5.3) L 12/23/21 03:35 Hgb 9.9 g/dL (11.7-16.6) L 12/23/21 03:35 Hct 30.0 % (42.0-52.0) L 12/23/21 03:35 MCV 94.0 fl (80-94) 12/23/21 03:35 MCH 31.0 pg (28.0-34.0) 12/23/21 03:35 MCHC 33.0 g/dL (30.0-36.0) 12/23/21 03:35 RDW 13.6 % (12.1-15.1) 12/23/21 03:35 Plt Count 192 10^3/cmm (130-400) 12/23/21 03:35 MPV 11.2 fL (7.4-10.4) H 12/23/21 03:35 Neut % (Auto) 54.0 % 12/23/21 03:35 Lymph % (Auto) 37.0 % 12/23/21 03:35 Calhoun % (Auto) 6.5 % 12/23/21 03:35 Eos % (Auto) 2.1 % 12/23/21 03:35 Baso % (Auto) 0.2 % 12/23/21 03:35 Neut # (Auto) 4.62 10^3/uL (1.8-7.7) 12/23/21 03:35 Lymph # (Auto) 3.2 10^3/uL (0.8-4.8) 12/23/21 03:35 Calhoun # (Auto) 0.6 10^3/uL (0.2-0.9) 12/23/21 03:35 Eos # (Auto) 0.2 10^3/uL (0.0-0.8) 12/23/21 03:35 Baso # (Auto) 0.0 10^3/uL (0.0-0.1) 12/23/21 03:35 Nucleated RBC % (auto) 0 % 12/23/21 03:35 Nucleated RBCs # 0.0 /100WBC 12/23/21 03:35 PT 14.70 SECONDS (12.1-14.9) 12/21/21 04:45 INR 1.12 (0.8-1.2) 12/21/21 04:45 APTT 27.5 SECONDS (23.9-36.7) 12/21/21 04:45 D-Dimer 0.65 ug/mIFEU (0-0.59) H 12/21/21 04:45 Sodium 137 mmol/L (136-145) 12/23/21 03:35 Potassium 4.1 mmol/L (3.5-5.1) 12/23/21 03:35 Chloride 102 mmol/L (98-107) 12/23/21 03:35 Carbon Dioxide 23 mmol/L (22-29) 12/23/21 03:35 Anion Gap 16.1 (5-19) 12/23/21 03:35 BUN 27 mg/dL (8-23) H 12/23/21 03:35 Creatinine 1.3 mg/dL (0.7-1.2) H 12/23/21 03:35 GFR Calculation Not Reportable 12/23/21 03:35 Glucose 145 mg/dL (65-115) H 12/23/21 03:35 POC Glucose 162 mg/dL (70-110) H 12/23/21 06:09 Estimat Average Glucose 186 12/21/21 04:45 Hemoglobin A1c 8.1 % (4.0-6.0) H 12/21/21 04:45 Calculated Osmolality 292 mOsm/kg (285-295) 12/23/21 03:35 Calcium 8.9 mg/dL (8.5-10.5) 12/23/21 03:35 Magnesium 1.9 mg/dL (1.7-2.3) 12/22/21 03:05 Total Bilirubin 0.5 mg/dL (0.15-1.2) 12/21/21 04:45 AST 18 U/L (0-40) 12/21/21 04:45 ALT 21 U/L (0-41) 12/21/21 04:45 Alkaline Phosphatase 84 IU/L (40-130) 12/21/21 04:45 Troponin T Baseline 10 ng/L (0-15) 12/21/21 04:45 Troponin T 120 Minute 8.86 ng/L (0-15) 12/21/21 07:43 Delta Troponin T -1.14 ABS# (0-10) L 12/21/21 07:43 NT-Pro-B Natriuret Pep 322 pg/mL (0-125) H 12/21/21 04:45 Total Protein 6.8 g/dL (6.6-8.7) 12/21/21 04:45 Albumin 3.9 g/dL (3.5-5.2) 12/21/21 04:45 Globulin 2.9 g/dL (1.3-4.6) 12/21/21 04:45 Triglycerides 268 mg/dL (0-150) H 12/22/21 03:05 Cholesterol 131 mg/dL (0-200) 12/22/21 03:05 LDL Cholesterol, Calc 50 mg/dL (50-129) 12/22/21 03:05 HDL Cholesterol 27 mg/dL (60-100) L 12/22/21 03:05 LDL/HDL Ratio 1.85 RATIO (0.00-3.22) 12/22/21 03:05 Cholesterol/HDL Ratio 4.85 mg/dL (1.0-5.00) 12/22/21 03:05 TSH 1.53 uIU/mL (0.27-4.20) 12/21/21 07:43 Vitals Last Vital Signs Temp 97.4 F L 12/23/21 13:46 Pulse 82 12/23/21 14:00 Resp 20 H 12/23/21 14:00 BP 117/81 12/23/21 14:00 Pulse Ox 96 12/23/21 14:00 Discharge Plan Discharge Patient Disposition: Home Condition: Stable Prescriptions: New isosorbide mononitrate 30 mg tablet extended release 24 hr 15 mg PO DAILY Qty: 15 0RF pantoprazole 40 mg Tablet,Delayed Release (Dr/Ec) 40 mg PO BID Qty: 60 0RF atorvastatin 40 mg Tablet 40 mg PO BEDTIME Qty: 30 0RF ranolazine 500 mg Tablet Extended Release 12 Hr 500 mg PO BID Qty: 60 0RF metoprolol succinate 25 mg tablet extended release 24 hr 12.5 mg PO DAILY Qty: 15 0RF sucralfate [Carafate] 1 gram tablet 1 g PO Q6H Qty: 120 0RF Continued ondansetron HCl 4 mg tablet 4 mg PO Q4H PRN (Reason: Nausea And Vomiting) 0RF colchicine 0.6 mg tablet 0.6 mg PO DAILY PRN (Reason: gout) 0RF allopurinol 300 mg tablet 300 mg PO QAM 0RF clopidogrel 75 mg tablet 75 mg PO QAM 0RF guaifenesin [Mucinex] 600 mg tablet extended release 12hr 600 mg PO DAILY PRN (Reason: Congestion) 0RF Nitrostat 0.4 mg Tablet, Sublingual 0.4 mg SUBLINGUAL Q5M PRN (Reason: Chest Pain) 0RF Rx Instructions: do not exceed 3 doses per episode Stool Softener 100 mg Capsule 100 mg PO QAM 0RF Changed tamsulosin 0.4 mg capsule 0.4 mg PO BEDTIME Qty: 0 0RF Discontinued metoprolol tartrate 50 mg tablet 50 mg PO QAM 0RF aspirin 325 mg tablet 325 mg PO QAM 0RF lisinopril 10 mg tablet 10 mg PO QAM 0RF isosorbide mononitrate 30 mg tablet extended release 24 hr 30 mg PO QAM 0RF Discharge Orders: Discharge Order (Routine); Ordered 12/23/21 Ordered By: Shiv Garcia Referrals: Roger Grimm MD [Physician] - 2 weeks Abdifatah Leslie M.D [Physician] - 1 week (May follow up with Margaret Babb Keep log of blood pressures) Germain Bradley MD [Primary Care Provider] - 4-7 days (CBC on follow up) Discharge Diet: Cardiac Patient Instructions: Opioid Safety Activity Restrictions/Additional Instructions: Take all medicines as prescribed Return for any worsening, blood in stool Follow-up with cardiology 1 week Follow-up with your primary care provider 3 to 5 days with CBC. Discussed with your physician treatment for diabetes, and possible initiation of metformin as your stomach problems improved. Follow-up with Dr. Grimm with surgery in 2 weeks Avoid all anti-inflammatories Do not take your Plavix, until 1 week from today, then resume if no evidence or concern of bleeding. Discharge Attestations Time Spent in Discharge Care*: greater than 30 min Quality Metrics Clinical Quality Measures [ No reported AMI, CVA or VTE this stay] Coding Level of Care Code Acute g [facility] note Diagnoses Black stool K92.1
--- NOTE | 2021-12-23 17:49 | PC.NURSE ---
discharge instructions discussed with patient and spouse. pt and spouse verbalize understanding on new medication, medication changes and follow up. patient discharged to private vehicle. medications delivered to bedside, all belongings taken with patient. no c.o chest pain after gi cocktail.
== END 2021-12-23 17:10 | disposition home or self-care (01) | DRG 286 ==
LOC: ER 07:11 → CSU 09:02
PROVIDERS: Emergency Medicine; Internal Medicine; Surgery; Admitting Provider Internal Medicine; Emergency Provider Family Medicine; PCP Family Medicine; Visit Provider Internal Medicine
PROC: B2131ZZ Fluoroscopy of Multiple Coronary Artery Bypass Grafts using Low Osmolar Contrast (ICD-10-PCS; principal; 2021-12-21 10:00)
PROC: 0DJ08ZZ Inspection of Upper Intestinal Tract, Via Natural or Artificial Opening Endoscopic (ICD-10-PCS; CPT 43235; principal; 2021-12-23 12:00)
DX: I25.110 Atherosclerotic heart disease of native coronary artery with unstable angina pectoris (principal); K26.4 Chronic or unspecified duodenal ulcer with hemorrhage; I25.710 Atherosclerosis of autologous vein coronary artery bypass graft(s) with unstable angina pectoris; M10.9 Gout, unspecified; I10 Essential (primary) hypertension; E11.51 Type 2 diabetes mellitus with diabetic peripheral angiopathy without gangrene; Z87.891 Personal history of nicotine dependence; I95.9 Hypotension, unspecified; K29.50 Unspecified chronic gastritis without bleeding; Z79.02 Long term (current) use of antithrombotics/antiplatelets; K20.90 Esophagitis, unspecified without bleeding
CPT/HCPCS: 36415; 36416; 43239; 71045; 76705; 80048; 80053; 80061; 82274; 82962; 83036; 83735; 83880; 84443; 84484; 85014; 85018; 85025; 85378; 85610; 85730; 88305; 93005; 93308; 93455; 94660; 96360; 96361; 96372; 96374; 99152; 99153; 99285; C1769; C1887; C1894; J0171; J1644; J1650; J1815; J2060; J2250; J2405; J2704; J3010; J7030; J7040; Q9967

== ENCOUNTER → 2022-01-27 15:30 | Outpatient (BNVA) | payer MEDICARE, SELFPAY | PROVIDERS: PCP Family Medicine; Visit Provider Family Medicine | DX: R73.9 Hyperglycemia, unspecified (principal); I10 Essential (primary) hypertension; I25.10 Atherosclerotic heart disease of native coronary artery without angina pectoris | CPT/HCPCS: 80053; 83036; 85025 ==

== ENCOUNTER → 2022-07-27 14:20 | Outpatient (BNVA) | payer SELFPAY | PROVIDERS: PCP Family Medicine; Visit Provider Family Medicine | DX: I10 Essential (primary) hypertension (principal); I25.10 Atherosclerotic heart disease of native coronary artery without angina pectoris; E11.9 Type 2 diabetes mellitus without complications | CPT/HCPCS: 80053; 80061; 83036; 83721; 85025 ==

== ENCOUNTER → 2024-08-09 14:52 | Outpatient (BNVA) | payer OTHER, SELFPAY | PROVIDERS: PCP Family Medicine; Referring Provider Nurse Practitioner; Visit Provider Internal Medicine | DX: R07.9 Chest pain, unspecified (principal); R94.31 Abnormal electrocardiogram [ECG] [EKG]; I25.10 Atherosclerotic heart disease of native coronary artery without angina pectoris; R55 Syncope and collapse; Z95.1 Presence of aortocoronary bypass graft; I10 Essential (primary) hypertension; E11.9 Type 2 diabetes mellitus without complications; Z87.891 Personal history of nicotine dependence | CPT/HCPCS: 93005; 93010; 99214 ==

== ENCOUNTER 2024-09-03 13:22 | Outpatient (CLI) | payer OTHER, SELFPAY ==
--- NOTE | 2024-09-03 13:30 | USCV_ITS ---
Julee Ren Age: 79 Gender: M : 1945 Exam Date: 09/03/2024 13:39 Ordering Phys: Abdifatah Leslie M.D ([email or web address]) Technologist: CT Exam Location: [facility] [place] Indication: BP: 110 / 66 HR: 89 Rhythm: Sinus Technical Quality: Adequate MEASUREMENTS (Male / Female) Normal Values 2D ECHO LVOT Diameter 2.1 cm LV Ejection Fraction MOD 4C 63.9 % LV Ejection Fraction MOD 2C 57.3 % LV Ejection Fraction 2C AL 56.8 % LA Diameter 3.0 cm RA Systolic Volume 4C AL 19.4 ml RA Systolic Volume 4C MOD 19.0 ml LA Sys Volume AL 39.1 cm cubed LA Sys Volume Index AL 17.5 cm cubed/m squared Aorta at Sinotubular Diameter 2.3 cm M-MODE LA Ao Ratio MM 1.3 AV Cusp Separation MM 1.4 cm DOPPLER AV Peak Velocity 108.0 cm/s LVOT Peak Velocity 110.0 cm/s AV Area Cont Eq vti 3.7 cm squared AV Area Cont Eq pk 3.6 cm squared MV Peak Velocity 97.0 cm/s MV Area PHT 3.6 cm squared Mitral E to A Ratio 0.6 TR Peak Velocity 203.0 cm/s TR Peak Gradient 16.5 mmHg TV Peak E Velocity 56.0 cm/s PV Peak Velocity 104.0 cm/s FINDINGS Left Ventricle Normal left ventricular size, systolic function and wall thickness, with no regional wall motion abnormalities. Left ventricular ejection fraction is estimated at 56 %. Grade I/IV diastolic dysfunction (abnormal relaxation filling pattern), normal to mildly elevated filling pressures. Right Ventricle The right ventricle is normal in size and function. Right Atrium The right atrium is normal in size. Left Atrium The left atrium is normal in size. Mitral Valve Thickened mitral valve. Mitral annular calcification. No mitral valve stenosis. Trace mitral valve regurgitation. Aortic Valve Mild aortic valve calcification. No aortic valve stenosis. Trace aortic valve regurgitation. Tricuspid Valve Structurally normal tricuspid valve without significant stenosis or regurgitation. Pulmonary artery systolic pressure is normal. Pulmonic Valve Structurally normal pulmonic valve without significant stenosis. There is no pulmonic regurgitation. Pericardium Normal pericardium without effusion. Aorta Normal ascending aorta dimension. IVC The inferior vena cava appears normal. CONCLUSIONS Normal left ventricular size, systolic function and wall thickness, with no regional wall motion abnormalities. Left ventricular ejection fraction is estimated at 56 %. Grade I/IV diastolic dysfunction (abnormal relaxation filling pattern), normal to mildly elevated filling pressures. No significant valve abnormalities. There is no pericardial effusion. Right atrial pressure is around 5 mm of mercury. Dawit Myers MD (Electronically Signed) Final Date: 04 September 2024 00:49 S
== END 2024-09-03 13:23 | disposition home or self-care (01) ==
LOC: RAD 13:24
PROVIDERS: Absent Provider Nurse Practitioner; PCP Family Medicine; Visit Provider Internal Medicine
DX: R07.9 Chest pain, unspecified (principal); R06.02 Shortness of breath; R93.1 Abnormal findings on diagnostic imaging of heart and coronary circulation; I34.81 Nonrheumatic mitral (valve) annulus calcification; I35.8 Other nonrheumatic aortic valve disorders
CPT/HCPCS: 93306

== ENCOUNTER → 2024-12-11 14:18 | Outpatient (BNVA) | payer OTHER, SELFPAY | PROVIDERS: PCP Family Medicine; Visit Provider Internal Medicine | DX: R07.9 Chest pain, unspecified (principal); I10 Essential (primary) hypertension; I25.10 Atherosclerotic heart disease of native coronary artery without angina pectoris; Z95.1 Presence of aortocoronary bypass graft; E11.9 Type 2 diabetes mellitus without complications; R55 Syncope and collapse; I47.20 Ventricular tachycardia, unspecified; Z79.84 Long term (current) use of oral hypoglycemic drugs | CPT/HCPCS: 99214 ==

== ENCOUNTER 2024-12-20 15:07 | Outpatient (CLI) | payer OTHER, SELFPAY ==
[2024-12-20 16:01] LABS: Basophils % 0.5 %; Eosinophils # 0.3 10^3/uL (0.0-0.8); Eosinophils % 3.2 %; Lymphocytes # 2.3 10^3/uL (0.8-4.8); Lymphocytes % 28.7 %; Mean Corpuscular HGB Conc 32.3 g/dL (30-55); Mean Corpuscular Hemoglobin 29.7 pg (27-33); Mean Corpuscular Volume 91.9 fl (82-101); Mean Platelet Volume 11.1 fL (7.4-10.4); Monocytes # 0.5 10^3/uL (0.2-0.9); Monocytes % 6.1 %; Neutrophils # 4.89 10^3/uL (1.8-7.7); Neutrophils % 61.1 %; Nucleated Red Blood Cells % 0 %; Platelet Count 198 10^3/cmm (157-399); Red Blood Count 4.68 10^6/uL (3.85-5.65); White Blood Count 8.01 10^3/uL (3.29-11.43)
[2024-12-20 16:25] LABS: INR 1.01 (0.83-1.21)
[2024-12-20 16:33] LABS: Anion Gap 17.2 (5-19); Blood Urea Nitrogen 17 mg/dL (8-23); Calcium 8.9 mg/dL (8.5-10.5); Carbon Dioxide 22 mmol/L (22-29); Chloride 102 mmol/L (98-107); Glucose 252 mg/dL (65-115); Osmolality Calculated 294 mOsm/kg (285-295); Potassium 4.2 mmol/L (3.5-5.1); Sodium 137 mmol/L (136-145)
== END 2024-12-20 15:08 | disposition home or self-care (01) ==
PROVIDERS: PCP Family Medicine; Visit Provider Internal Medicine
DX: I10 Essential (primary) hypertension (principal); R58 Hemorrhage, not elsewhere classified; I25.10 Atherosclerotic heart disease of native coronary artery without angina pectoris; R07.9 Chest pain, unspecified
CPT/HCPCS: 36415; 80048; 85025; 85610

== ENCOUNTER 2024-12-26 05:48 | Outpatient (CLI) | payer OTHER, SELFPAY ==
[2024-12-26] VITALS (13 sets, daily range): BP systolic 120–153; BP diastolic 68–94; PULSE 54–64; RESP 16–25; TEMP 36.2–36.9; O2SAT 91–98; BMI 31.5
[2024-12-26] MEDS: sodium chloride 0.9% 250 ML 500 ML IV (06:42)
[2024-12-26] MEDS: aspirin 325 mg Tablet PO (06:42)
--- NOTE | 2024-12-26 10:00 | XACV_ITS ---
Exam Room: 2 Ht: 178 cm Wt: 100 kg BSA: 2.25 m2 Gender: Male : 1945 Any Known Allergies: No known allergies Exam Priority: Routine Procedure(s): Procedure Description: Diagnostic procedure Procedure Description: CRUZ Graft Catheterization Procedure Description: Coronary Angiography Diagnostic Cath Status: Elective Diagnostic Findings * INDICATION: Syncope/ Ventricular tachycardia. * Left Main has moderate 40-50% stenosis. * Proximal Left Anterior Descending to Mid Left Anterior Descending: severe diffuse disease. * Mid Right Coronary Artery: Chronic total occlusion, NOMAN: 0 flow. * Proximal Circumflex: Chronic total occlusion, NOMAN: 0 flow. * SVG grafts are known occluded. * CRUZ to LAD is patent and supplies LAD/diagonal and gives collaterals to the RCA territory. * Coronary angiography shows right dominance. Conclusions 1. Patent CRUZ to LAD supplying large sized [place] LAD, diagonal artery and gives collaterals to RCA territory.. 2. Patient has prior CABG. Recommendations * Aggressive risk factor modification. * Outpatient cardiology follow up in 2 weeks. Interventional RX Recommendation: medical therapy and/or counseling Diagnostic RX Recommendation: medical therapy and/or counseling Anticoagulation: Heparin Pressures Phase:Rest AO : 139 / 74 ( 99 ) @ 12:04:00 PM Clinical Evaluation EBL: 5mL-10mL Procedural Details Procedure Consent Obtained. Admit Source: Out Patient. Pre-Procedure Time Out. Identified patient by full name and date of as verbalized by the patient/guarantor. Does the consent match the physician's order: Yes. Accurate & Complete Informed Consent: Yes. Inpatient/Outpatient History & Physical on Chart: Yes. If H&P is completed, is and addenduem needed: No; If yes, is the addendum complete: N/A. Visualize and Verify Site with Patient/Guarantor: N/A. Relevant Radiology Images available: Yes. The risks, benefits, and alternatives of sedation and/or procedure were discussed by physician. The patient agrees to continue. Procedure started. [facility] Clinical Fraility Score: 3: Managing Well. Fight Manager Indications: Worsening Angina. Chest Pain Symptom Assessment: Typical Angina Symptoms. Correct patient, site and procedure confirmed by cath team. Current diagnosis: Chest Pain. PERRLA. Strong, equal hand x ray developing machine operator bilaterally. Lungs clear x 5 lobes. IV Site on Arrival: 20 gauge in the left anticubital. IV Fluids: 0.9% NaCl at KVO. 600 mL infused prior to clinical laboratory science professor. Pre Procedural Pulses: bilateral posterior tibial was 2+. Pre Procedural Pulses: bilateral dorsalis pedis was 2+. Pre Procedural Pulses: bilateral radial was 3+. Oxygen started at 2liters/min via nasal canula. left radial was prepped with chloroprep then draped in the usual sterile fashion. bilateral groins was prepped with chloroprep then draped in the usual sterile fashion. Physician notified. Baseline sample Acquired. HR: 55 BPM. Physician arrived. Physician scrubbed in. Immediate Pre-Procedure Time Out. Correct Patient: Yes; Correct Procedure: Yes; Correct Site: Yes; Correct Patient Position: Yes; Correct Supplies: Yes; Dried Flammable Prep: Yes; Blood Products Available: Yes;. Lidocaine 1% infiltrated to the left radial. Arterial access obtained. A 5 algerian TIG catheter in over wire. Wire out. CRUZ to LAD visualized. Multiple views taken of left coronary artery. Catheter redirected to the RCA. Multiple views taken of right coronary artery. SVG grafts known to be occluded and imaging not attempted. Catheter removed over the exchange wire. A 5 algerian IM catheter in over wire. Wire out. CRUZ to LAD visualized. Catheter removed over the exchange wire. Physician scrubbed out. Post Procedure: Pulses reassessed and unchanged. PERRLA. Strong, equal hand x ray developing machine operator bilaterally. No VTE prophylaxis required. Medication's Wasted: Lidocaine 1% = 18 mL. Medication's Wasted: Nitro = 49.8 mg. Medication's Wasted: Heparin = 1000 unit. Medication's Wasted: Other = Fentanyl 25mcg. Total IV fluids: 30 mL. A TR Band was successful obtaining hemostatsis at the Left Radial artery insertion site. Post-op diagnosis: Severe [place] CAD, Patent CRUZ to LAD. Complications: None. Estimated blood loss: 5mL-10mL. Responsiveness - Normal response to verbal stimuli; alert and oriented, PERRLA. Airway - Unaffected, no intervention required; spontaneous ventilation. Circulation: W/N/L, pulses unchanged. Nausea/Vomiting: No. Procedure completed. Patient transferred by wheelchair to 1st floor. Vital chart was stopped. Access Site Site: Left Radial artery Sheath Size: 6 Fr Hemostasis Method: TR Band Hemostasis Success: Successful Procedure Medications Start: 10:48 AM Stop: 10:48 AM Medication: Versed Amount: 1 mg Route: I.V. Start: 10:48 AM Stop: 10:48 AM Medication: Fentanyl Amount: 50 mcg Route: I.V. Start: 11:01 AM Stop: 11:01 AM Medication: Nitrogylcerin Amount: 200 mcg Route: I.A. Start: 11:03 AM Stop: 11:03 AM Medication: Heparin Amount: 5000 units Route: I.V. Start: 11:05 AM Stop: 11:05 AM Medication: Fentanyl Amount: 25 mcg Route: I.V. Start: 11:05 AM Stop: 11:05 AM Medication: Versed Amount: 1 mg Route: I.V. I, the attending physician, have reviewed and verified all procedure medications. Yes, all medications given per verbal order History/Risk Factors Hypertension: Yes Dyslipidemia: No Peripheral Arterial Disease (PAD): No Myocardial Infarction (NM): No Obesity: Yes Renal Disease: No Prior Interventions PCI: No CABG: Yes Valve Surgery: No Report Signatures Finalized by Abdifatah Leslie MD on 01/06/2025 05:14 PM
--- NOTE | 2024-12-26 10:25 | P.HPUD_ITS ---
Surgery/Procedure H&P Update DATE OF PROCEDURE: December 26, 2024 DATE H&P PERFORMED: 12/11/24 H&P UPDATE INFORMATION: I have reviewed H&P completed within last 30 days, I have examined patient prior to procedure and No changes to prior documentation PREOP DIAGNOSIS: Syncope/ Ventricular tachycardia PRIMARY INDICATION FOR PROCEDURE: Syncope/ Ventricular tachycardia PLANNED PROCEDURE: Operation Date: 12/26/24 10:00 Proposed Procedures p Cardiac Catheterization - [facility] w/wo LV & Coros(Left) - Abdifatah Leslie M.D Possible percutaneous coronary intervention PATIENT REASSESSED PRIOR TO SEDATION, WITH NO CHANGE NOTED: Yes PHYSICAL EXAM: alert, oriented x 3, clear to auscultation bilaterally and regular rate & rhythm AIRWAY EVAL/ANESTHESIA PLAN: normal airway, ASA III, Local Anesthesia, Risks, benefits & alternatives of sedation and/or procedure discussed and Patient agrees to continue as planned ADDITIONAL INFORMATION: Moderate sedation
--- NOTE | 2024-12-26 11:21 | P.PCN_ITS ---
Procedure Note: Date of procedure: 12/26/24 Pre-procedure diagnosis: VT/ Syncope Post-procedure diagnosis: other (Patent CRUZ to LAD) Procedure: Patent CRUZ to LAD supplying LAD, Diagonal artery and collaterals to RCA territory. Aggressive medical therapy Performing Provider: Abdifatah Leslie Estimated blood loss (mL): 5 Complications: None Condition: stable Disposition: same day Coding Level of Care Code Acute Code for [facility]
--- NOTE | 2024-12-26 12:40 | PM.SDS ---
Short Stay Summary Providers Date of Admit/Discharge: 12/26/24 Attending Provider: Abdifatah Leslie M.D Primary Care Provider: ABDELRAHMAN Sherman Chief Complaint: I20.0 HPI History of Present Illness Julee Ren is a 79 year old male with past medical history of coronary artery disease status post CABG several years ago with CRUZ to LAD, SVG to PDA and left graft to OM1 and OM 2 who had a cardiac catheterization about 2 years ago which showed only patent graft was CRUZ to LAD. He has been referred back as he has been having on and off syncopal episodes. This year he had total of 3 syncopal episodes. He does get warning symptoms and sits down prior to these. On 1 occasion it lasted almost 3 minutes according to his . He gets on and off chest pain and dyspnea on exertion. EKG shows sinus rhythm. Continues having chest pain and dyspnea on exertion. Also has multiple presyncopal/ syncopal episodes. gambling monitor showed ventricular tachycardia longest 7 seconds. Blood pressure is controlled. EF is normal. Review of Systems Card: Denies: chest pain, palpitations, irregular heart rhythm, edema, swelling of feet/ankles, lightheadedness, syncope, pre-syncope, dyspnea on exertion, orthopnea or leg pain with exertion Resp: Denies: dyspnea, productive cough or non-productive cough GI: Denies: hematochezia : Denies: hematuria Skin/Breast: Reports: surgical incision Homar/Lymph: Denies: easy bleeding Home Meds/Allergies Home Medications and Allergies Home Medications ?Medication ?Instructions ?Recorded ?Confirmed ?Type nitroglycerin 0.4 mg sublingual 0.4 mg sublingual Q5M PRN Chest 12/21/21 12/26/24 History tablet (Nitrostat) Pain cholecalciferol (vitamin D3) 10 10 mcg PO DAILY 08/09/24 12/26/24 History mcg (400 unit) capsule guaifenesin 400 mg tablet 400 mg PO DAILY 08/09/24 12/26/24 History lisinopril 20 mg tablet 20 mg PO DAILY 08/09/24 12/26/24 History tamsulosin 0.4 mg capsule 0.4 mg PO DAILY 08/09/24 12/26/24 History Allergies Allergy/AdvReac Type Severity Reaction Status Date / Time No Known Drug Allergies Allergy Unknown unknown Verified 12/11/24 14:43 PFSH Acute PFSH: Medical History Diabetes mellitus Hypertension Gout Benign prostatic hyperplasia History of diverticulitis With history of colonic rupture requiring colostomy SOB (shortness of breath) Chest pain PVD (peripheral vascular disease) CAD (coronary artery disease) Surgical History History of coronary artery stent placement History of appendectomy History of colostomy reversal Hx of CABG Family History Other CAD (coronary artery disease) Diabetes Social History Smoking and tobacco/nicotine status: former use of tobacco/nicotine Alcohol intake: never Vitals/I&O/Wt Last Vital Signs Temp 98.5 F 12/26/24 06:00 Pulse 60 12/26/24 12:30 Resp 22 H 12/26/24 12:30 BP 120/72 12/26/24 12:30 Pulse Ox 93 12/26/24 12:30 O2 Del Method Room Air 12/26/24 12:30 Weight last 48 hrs Weight 220 lb Physical Exam Const: COMMON NORMALS: no acute distress and patient oriented x3 GENERAL APPEARANCE: cooperative ORIENTATION/CONSCIOUSNESS: Yes awake, Yes oriented to person, Yes oriented to place and Yes oriented to time Chest: COMMONS NORMALS: normal inspection of the chest and normal palpation of entire chest wall CHEST: Yes Symmetrical chest wall rise Resp: COMMON NORMALS: normal respiratory effort, No retractions, No use of accessory muscles and clear to auscultation bilaterally AUSCULTATION: clear to auscultation bilaterally Cardio: COMMON NORMALS: regular rate, regular rhythm, S1 normal heart sound present, S2 normal heart sound present, No gallops present (Cardio), No clicks present (Cardio), No murmurs present (Cardio) and No rub (Cardio) RATE: regular rate RHYTHM: regular rhythm HEART SOUNDS: S1 normal heart sound present and S2 normal heart sound present PERIPHERAL PULSES: radial pulses present positive right 2+ and femoral pulses present positive right 2+ Neuro: COMMON NORMALS: patient oriented x3 and moves all extremities SENSORIUM/ORIENTATION: Yes oriented to person, Yes oriented to place and Yes oriented to time Skin: WOUNDS: Yes surgical site (no hematoma palpable) Details: no odor Hospital Course Hospital Course He was brought in for coronary angiogram today revealing patent CRUZ to the LAD which supplies LAD, diagonal and collaterals to the RCA. Medical management advised. No complications with right radial cath site. He had preprocedure hydration due to baseline creatinine 1.4. Will continue hydration until 3 PM, if he is still stable and chest pain free at that time he can discharge home. No changes in medications. Follow-up with cardiology clinic in 7 to 10 days. 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 Routin e Exams 12/26/24 10:00 Ordered Discharge Plan Discharge Patient Disposition: Home Prescriptions: Continued cholecalciferol (vitamin D3) 10 mcg (400 unit) capsule 10 mcg PO DAILY guaifenesin 400 mg tablet 400 mg PO DAILY tamsulosin 0.4 mg capsule 0.4 mg PO DAILY lisinopril 20 mg tablet 20 mg PO DAILY allopurinol 300 mg tablet See Rx Instructions .ROUTE .COMPLEX Qty: 30 11RF Dose Instruction: take ONE tablet BY MOUTH EVERY DAY Rx Instructions: take ONE tablet BY MOUTH EVERY DAY glimepiride 2 mg tablet See Rx Instructions .ROUTE .COMPLEX Qty: 30 11RF Dose Instruction: TAKE ONE TABLET BY MOUTH DAILY Rx Instructions: TAKE ONE TABLET BY MOUTH DAILY sucralfate 1 gram tablet See Rx Instructions .ROUTE .COMPLEX Qty: 120 11RF Dose Instruction: TAKE 1 TABLET BY MOUTH EVERY 6 HOURS Rx Instructions: TAKE 1 TABLET BY MOUTH EVERY 6 HOURS clopidogrel 75 mg tablet See Rx Instructions .ROUTE .COMPLEX Qty: 30 10RF Dose Instruction: TAKE 1 TABLET BY MOUTH EVERY DAY Rx Instructions: TAKE 1 TABLET BY MOUTH EVERY DAY isosorbide mononitrate 30 mg tablet extended release 24 hr See Rx Instructions .ROUTE .COMPLEX Qty: 30 10RF Dose Instruction: TAKE 1 TABLET BY MOUTH EVERY DAY Rx Instructions: TAKE 1 TABLET BY MOUTH EVERY DAY pantoprazole 40 mg tablet,delayed release (DR/EC) See Rx Instructions .ROUTE .COMPLEX Qty: 180 3RF Dose Instruction: TAKE 1 TABLET BY MOUTH TWICE DAILY Rx Instructions: TAKE 1 TABLET BY MOUTH TWICE DAILY metoprolol succinate 50 mg tablet extended release 24 hr 50 mg PO DAILY Qty: 90 3RF nitroglycerin [Nitrostat] 0.4 mg Tablet, Sublingual 0.4 mg SUBLINGUAL Q5M PRN (Reason: Chest Pain) Rx Instructions: do not exceed 3 doses per episode Discharge Orders: Discharge Order (Routine); Ordered 12/26/24 Ordered By: Margaret Babb Referrals: Margaret Babb FNP [Nurse Practitioner, Cardiology] - 01/07/25 2:00 pm Diet: Advance as tolerated Activity: Increase activity as tolerated Activity Restrictions/Additional Instructions: No lifting over 5 pounds with right arm for the next 4 days. Print Language: Belarusian Attestations Medical Necessity Statement*: DC home Time Spent in Patient Care*: less than 30 min Quality Metrics Clinical Quality Measures: [ No reported AMI, CVA or VTE this stay] Coding Level of Care Code Acute Code for Chg Tiffany
--- NOTE | 2024-12-26 14:08 | PC.NURSE ---
Pt transferred to PACU for further recovery and discharge. Pt alert and oriented. No brusing or hematoma noted. Pt complaining of no pain.
--- NOTE | 2024-12-26 14:18 | SUR.PHASEII ---
1408 Pt recieved to room 12 in PACU. Sitting up in chair. Alert and oriented times 4. Dressing c/d/i to left forearm. VSS. Pt6 denies pain or discomfort.
== END 2024-12-26 15:40 | disposition home or self-care (01) ==
PROVIDERS: Internal Medicine Cardiovascular Disease; PCP Nurse Practitioner; Visit Provider Internal Medicine
DX: I25.10 Atherosclerotic heart disease of native coronary artery without angina pectoris (principal); I25.82 Chronic total occlusion of coronary artery; Z95.1 Presence of aortocoronary bypass graft; I10 Essential (primary) hypertension; E66.9 Obesity, unspecified; Z68.31 Body mass index [BMI] 31.0-31.9, adult; E11.9 Type 2 diabetes mellitus without complications; I73.9 Peripheral vascular disease, unspecified; Z87.891 Personal history of nicotine dependence; K21.9 Gastro-esophageal reflux disease without esophagitis; Z82.49 Family history of ischemic heart disease and other diseases of the circulatory system
CPT/HCPCS: 36415; 93455; 96360; 96361; 96374; 99152; 99153; C1769; C1887; C1894; J1644; J2250; J3010; J3490; J7030; J9999; Q9967

== ENCOUNTER → 2025-01-07 13:27 | Outpatient (BNVA) | payer OTHER, SELFPAY | PROVIDERS: PCP Nurse Practitioner; Visit Provider Nurse Practitioner Family | DX: I25.10 Atherosclerotic heart disease of native coronary artery without angina pectoris (principal); Z09 Encounter for follow-up examination after completed treatment for conditions other than malignant neoplasm; F41.9 Anxiety disorder, unspecified; Z79.02 Long term (current) use of antithrombotics/antiplatelets; Z95.5 Presence of coronary angioplasty implant and graft; Z95.1 Presence of aortocoronary bypass graft | CPT/HCPCS: 36415; 80048; 99214 ==

== ENCOUNTER → 2025-07-11 15:12 | Outpatient (BNVA) | payer OTHER, SELFPAY | PROVIDERS: PCP Nurse Practitioner; Visit Provider Internal Medicine | DX: I25.10 Atherosclerotic heart disease of native coronary artery without angina pectoris (principal); Z95.1 Presence of aortocoronary bypass graft; I10 Essential (primary) hypertension; Z87.891 Personal history of nicotine dependence | CPT/HCPCS: 99214 ==